=== PATIENT | female | born 1985 | race Caucasian/White ===

== ENCOUNTER → 2016-12-22 | Outpatient (CLI) | payer BC ==
[~2016-12-22] MED LIST: MTR600X PO; OXYC-57 PO; PRENTAB26 PO
[2016-12-22 12:36] LABS: URINE APPEARANCE CLEAR (CLEAR); URINE BILIRUBIN NEG (NEG); URINE COLOR YELLOW; URINE EPITHELIAL CELL AUTO >30 /lpf (0-5); URINE NITRITE NEG (NEG); URINE PH 7.5 (4.5-7.5); URINE SPECIFIC GRAVITY 1.013 (1.000-1.030); UROBILINOGEN NEG (NEG)
[2016-12-22 12:38] LABS: GTGD 50 Grams
[2016-12-22 12:42] LABS: MANUAL MICROSCOPIC REQUIRED? NO; REVIEW REQ? YES
== END | disposition home or self-care (01) ==
LOC: C.LAB1850 09:55
PROVIDERS: ATTEND Obstetrics & Gynecology
DX: Z34.03 Encounter for supervision of normal first pregnancy, third trimester (principal)

== ENCOUNTER → 2017-02-17 | Outpatient (CLI) | payer BC ==
[2017-02-17 12:12] LABS: BASO % 0.1 %; BASO ABS # 0.02 K/uL (0-0.2); COMPLETE YES; EOS % 0.8 %; IG% 0.9 %; LYMPH % 13.1 %; LYMPH ABS # 2.09 K/uL (1.2-3.4); MEAN CELL VOLUME 89.3 fL (80-100); MEAN CORPUSCULAR HEMOGLOBIN 30.3 pg (25-34); MEAN CORPUSCULAR HGB CONC 33.9 g/dl (32-36); MEAN PLATELET VOLUME 10.8 fL (7.4-10.4); MONO % 6.7 %; NEUT % 78.4 %; PLATELET COUNT 262 K/uL (130-400); RED BLOOD COUNT 4.03 M/uL (4.2-5.4); WHITE BLOOD COUNT 15.98 K/uL (4.8-10.8)
[2017-02-17 12:18] LABS: ALT/SGPT 16 U/L (12-78); AST/SGOT 13 U/L (15-37); CREATININE 0.61 mg/dl (0.60-1.20); URIC ACID 3.9 mg/dl (2.6-7.2)
[2017-02-17 12:33] LABS: URINE TOTAL PROTEIN 12.6 mg/dl (0-11.9)
[2017-02-17 13:03] LABS: URINE TOTAL PROTEIN CALC 277.2 mg/24 hr (0-149.1)
== END | disposition home or self-care (01) ==
LOC: C.LAB1850 10:44
PROVIDERS: ATTEND Obstetrics & Gynecology
DX: R80.9 Proteinuria, unspecified (principal)

== ENCOUNTER → 2017-02-20 | Outpatient (CLI) | payer BC | END | disposition home or self-care (01) | LOC: C.LABSPEC 15:04 | PROVIDERS: ATTEND Obstetrics & Gynecology | DX: Z34.03 Encounter for supervision of normal first pregnancy, third trimester (principal) ==

== ENCOUNTER → 2017-02-27 | Outpatient (CLI) | payer BC ==
[2017-02-27 09:36] LABS: BASO % 0.1 %; BASO ABS # 0.02 K/uL (0-0.2); COMPLETE YES; EOS % 1.9 %; HEMATOCRIT 35.4 % (37-47); IG% 1.2 %; LYMPH % 16.7 %; LYMPH ABS # 2.58 K/uL (1.2-3.4); MEAN CELL VOLUME 89.8 fL (80-100); MEAN CORPUSCULAR HEMOGLOBIN 30.7 pg (25-34); MEAN CORPUSCULAR HGB CONC 34.2 g/dl (32-36); MEAN PLATELET VOLUME 11.2 fL (7.4-10.4); MONO % 7.2 %; NEUT % 72.9 %; PLATELET COUNT 238 K/uL (130-400); RED BLOOD COUNT 3.94 M/uL (4.2-5.4); WHITE BLOOD COUNT 15.44 K/uL (4.8-10.8)
[2017-02-27 10:17] LABS: ALT/SGPT 18 U/L (12-78); AST/SGOT 13 U/L (15-37); CREATININE 0.67 mg/dl (0.60-1.20); URIC ACID 4.2 mg/dl (2.6-7.2)
[2017-02-27 10:39] LABS: URINE TOTAL PROTEIN 17.8 mg/dl (0-11.9)
[2017-02-27 10:49] LABS: URINE TOTAL PROTEIN CALC 351.6 mg/24 hr (0-149.1)
== END | disposition home or self-care (01) ==
LOC: C.LAB1850 07:33
PROVIDERS: ATTEND Obstetrics & Gynecology
DX: R80.9 Proteinuria, unspecified (principal)

== ENCOUNTER 2017-03-09 09:15 | Inpatient (IN) | payer BC ==
[~2017-03-09] VITALS: Ht 165.1 cm; Wt 107.5 kg
[2017-03-09] MEDS ORDERED: LACTATED RINGER'S 1000ML 1,000 ML IV PRN (09:46)
[2017-03-09] MEDS ORDERED: PENICILLIN G POTASSIUM IV 6 MU in DEXTROSE 5% 250ML 250 ML IV ONE (10:00)
[2017-03-09 10:21] LABS: HEMATOCRIT 35.8 % (37-47); MEAN CELL VOLUME 89.5 fL (80-100); MEAN PLATELET VOLUME 10.9 fL (7.4-10.4); PLATELET COUNT 250 K/uL (130-400); WHITE BLOOD COUNT 19.42 K/uL (4.8-10.8)
[2017-03-09] MEDS ORDERED: BUPIVACAINE 0.25% 30 ML VIAL ONE (10:29)
[2017-03-09] MEDS ORDERED: FENTANYL CITRATE INJ 50 MCG/1 ML 2 ML VIAL ONE (10:29)
[2017-03-09] MEDS ORDERED: FENTANYL 2MCG/ML ROPIV 1.25MG/ML 100ML BAG EPI ONE (10:29)
[2017-03-09] MEDS ORDERED: EpHEDrine SULFATE INJ 50 MG/ML AMP ONE (10:29)
[2017-03-09 10:35] LABS: MEAN CORPUSCULAR HGB CONC 33.5 g/dl (32-36)
[2017-03-09] MEDS ORDERED: NALOXONE HCL INJ 1 MG in SODIUM CHLORIDE 0.9% 1000ML 1,000 ML IV PRN (10:56)
[2017-03-09] MEDS ORDERED: LACTATED RINGER'S 1000ML 500 ML IV PRN ×2 (10:56→16:24)
[2017-03-09] MEDS ORDERED: EpHEDrine SULFATE INJ 50 MG/ML AMP IV PRN (11:00)
[2017-03-09] MEDS ORDERED: ONDANSETRON INJ 2 MG/ML 2 ML VIAL IV PRN (11:00)
[2017-03-09] MEDS ORDERED: NALOXONE HCL INJ 0.4 MG/1 ML VIAL/CARP IV PRN (11:00)
[2017-03-09] MEDS ORDERED: DiphenhydrAMINE HCL 50 MG/ML VIAL IV PRN (11:00)
[2017-03-09] MEDS ORDERED: NALBUPHINE HCL INJ 10 MG/ML AMP IV PRN (11:00)
[2017-03-09] MEDS: LACTATED RINGER'S 1000ML 1,000 ML IV SCH ×2 (11:55→17:27)
[2017-03-09 11:56] VITALS: Ht 165.1 cm; Wt 107.5 kg
[2017-03-09] MEDS ORDERED: PRENTAB26 PO (12:00)
[2017-03-09] MEDS: PENICILLIN G POTASSIUM IV 3 MU in DEXTROSE 5% 100ML 100 ML IV PRN ×3 (14:02→21:56)
[2017-03-09] MEDS ORDERED: ACETAMINOPHEN 325 MG TAB PO STA ×2 (14:44→21:51)
[2017-03-09] MEDS: FENTANYL 2MCG/ML ROPIV 1.25MG/ML 100ML BAG EPI PRN ×3 (15:07→19:13)
[2017-03-09] MEDS ORDERED: NURSING VERBAL MED ORDER ONE ×2 (15:15→17:45)
[2017-03-09] MEDS ORDERED: CALCIUM CARBONATE 500 MG CHEWABLE ONE (15:16)
[2017-03-09] MEDS ORDERED: OXYTOCIN 30 UNITS/500ML NSS IV PRN (16:30)
[2017-03-09] MEDS ORDERED: RANITIDINE HCL 150 MG TAB PO ONE (18:00)
[2017-03-09 18:49] LABS: HEMATOCRIT 34.3 % (37-47); MEAN CELL VOLUME 89.3 fL (80-100); PLATELET COUNT 205 K/uL (130-400); RED BLOOD COUNT 3.84 M/uL (4.2-5.4); WHITE BLOOD COUNT 18.81 K/uL (4.8-10.8)
[2017-03-09 19:08] LABS: MEAN CORPUSCULAR HGB CONC 34.7 g/dl (32-36)
[2017-03-09 19:12] LABS: CREATININE 0.73 mg/dl (0.60-1.20); URIC ACID 4.6 mg/dl (2.6-7.2)
[2017-03-10] VITALS (13 sets, daily range): BP systolic 114–133; BP diastolic 69–79; PULSE 89–110; TEMP 36.7–37.2; O2SAT 95–96
[2017-03-10] MEDS ORDERED: CEFAZOLIN SOD 2000 MG in DEXTROSE 5% 50ML IV STA (01:49)
[2017-03-10] MEDS ORDERED: CITRIC ACID/SODIUM CITRATE 15 ML UDC ONE (01:55)
[2017-03-10] MEDS ORDERED: BUPIVACAINE 0.5 % 5 MG/1 ML PF 10ML VIAL ONE (01:56)
[2017-03-10] MEDS ORDERED: MoRPHine SULFATE PF 1 MG/ML 10 ML AMP/VIAL ONE (01:57)
[2017-03-10] MEDS ORDERED: NURSING VERBAL MED ORDER ONE (02:00)
[2017-03-10] MEDS ORDERED: MIDAZOLAM HCL 1 MG/ML 2ML VIAL ONE (02:37)
[2017-03-10] MEDS ORDERED: METHYLERGONOVINE MALEATE 0.2 MG/ML AMP ONE (02:40)
[2017-03-10] MEDS ORDERED: LACTATED RINGER'S 1000ML 1,000 ML IV SCH (02:53)
[2017-03-10] MEDS ORDERED: DC PCA PRN (03:00)
[2017-03-10] MEDS ORDERED: DIPHTHERIA/TETANUS/PERTUSSIS 0.5 ML SYR/VIAL IM. ONE (03:00)
[2017-03-10] MEDS ORDERED: BENZOCAINE 20% AER SPR 82.5 GM CAN EXT PRN (03:00)
[2017-03-10] MEDS ORDERED: HYDROCORTISONE ACETATE 25 MG SUPP PR PRN (03:00)
[2017-03-10] MEDS ORDERED: SUPERCREAM 0.870 % 15GM JAR EXT PRN (03:00)
[2017-03-10] MEDS ORDERED: LANOLIN OINT EXT PRN ×2 (03:00)
[2017-03-10] MEDS ORDERED: FENTANYL CITRATE INJ 50 MCG/1 ML 2 ML VIAL ONE (03:05)
[2017-03-10] MEDS ORDERED: NALOXONE HCL INJ 1 MG in SODIUM CHLORIDE 0.9% 1000ML 1,000 ML IV PRN (03:18)
[2017-03-10] MEDS ORDERED: SODIUM CHLORIDE 0.9% 1000ML 1,000 ML IV PRN (03:18)
[2017-03-10] MEDS ORDERED: LACTATED RINGER'S 1000ML 500 ML IV PRN (03:18)
[2017-03-10] MEDS ORDERED: NALOXONE HCL INJ 0.08 MG in SYRINGE 1.8 ML IV PRN (03:18)
--- NOTE | 2017-03-10 03:19 | Anesthesiology Progress Note ---
Anesthesia Post Op Note Date & Time Mar 10, 2017 at 03:18 Vital Signs Pain Intensity: 4.0 Notes Mental Status: alert / awake / arousable, participated in evaluation Pt Amnestic to Procedure: Yes Nausea / Vomiting: adequately controlled Pain: adequately controlled Airway Patency, RR, SpO2: stable & adequate BP & HR: stable & adequate Hydration State: stable & adequate Anesthetic Complications: no major complications apparent
--- NOTE | 2017-03-10 03:19 | Anesthesia Procedure Note ---
Anesthesia Epidural Removal Nt Date & Time Mar 10, 2017 at 03:19 Vital Signs Pain Intensity: 4.0 Notes Mental Status: alert / awake / arousable, participated in evaluation Nausea / Vomiting: adequately controlled Pain: adequately controlled Airway Patency, RR, SpO2: stable & adequate BP & HR: stable & adequate Hydration State: stable & adequate Neuraxial Anesthesia: was administered Anesthetic Complications: no major complications apparent, pt satisfied with anesthetic care Epidural: removed without complications, with tip intact
[2017-03-10] MEDS: OXYTOCIN INJ 20 UNITS in LACTATED RINGER'S 1000ML 1,000 ML IV SCH ×2 (03:24→12:07)
[2017-03-10] MEDS ORDERED: KETOROLAC TROMETHAMINE 30 MG/ML VIAL IV. PRN ×2 (03:30→15:00)
[2017-03-10] MEDS ORDERED: MoRPHine SULFATE 2 MG/ML CARP IV PRN (03:30)
[2017-03-10] MEDS ORDERED: DC INTRASPINAL MORPHINE SCH (03:30)
[2017-03-10] MEDS ORDERED: NALOXONE HCL 0.4 MG/1 ML VIAL/CARP IV PRN (03:30)
[2017-03-10] MEDS ORDERED: ONDANSETRON INJ 2 MG/ML 2 ML VIAL IV PRN (03:30)
[2017-03-10] MEDS ORDERED: NALBUPHINE HCL INJ 10 MG/ML AMP IV PRN (03:30)
[2017-03-10] MEDS ORDERED: DiphenhydrAMINE HCL 50 MG/ML VIAL IV PRN (03:30)
[2017-03-10] MEDS ORDERED: EpHEDrine SULFATE INJ 50 MG/ML AMP IV PRN (03:30)
[2017-03-10] MEDS ORDERED: MoRPHine SULFATE PF 1 MG/ML 10 ML AMP/VIAL EPI PRN (03:30)
[2017-03-10] MEDS ORDERED: NO NARCOTICS OR SEDATIVES SCH (03:30)
--- NOTE | 2017-03-10 04:53 | OPERATIVE REPORT ---
DATE OF OPERATION: 03/10/2017 PREOPERATIVE DIAGNOSES: 1. Mims intrauterine at 39 and 1/7 weeks. 2. Gestational proteinuria. 3. Spontaneous labor and spontaneous rupture of membranes. 4. Failure to descend. 5. Maternal exhaustion. POSTOPERATIVE DIAGNOSES: Same. PROCEDURE: Primary low transverse section. SURGEON: Dr. Zamarripa. ASSURANCE SOURCING MANAGER: Dr. Verduzco. ESTIMATED BLOOD LOSS: 650 mL FINDINGS: in SANDRA position with asynclitism, normal ovaries and tubes bilaterally. COMPLICATIONS: None. DISPOSITION: Stable in labor and delivery. DESCRIPTION: Ni is a 31-year-old G1, P0, who presented at 39 weeks gestational age in labor with spontaneous rupture of membranes. She had been planned for induction on March 09 due to gestational proteinuria and severe edema; however, she had spontaneously begun the labor at approximately 4:00 a.m. that morning and came in laboring and ruptured on her own. She was provided with an epidural for pain management and antibiotics for group B Strep status. She labored spontaneously until becoming stalled at 9 cm dilation. An IUPC was placed and Pitocin was used to titrate for adequate MVUs. The patient reached complete dilation with an urge to push. The patient made excellent pushing efforts over the course of 3 hours with extensive coaching, both by nursing staff and myself at the bedside. She was able to achieve rotation of an infant that was initially in the direct OP position through the LOT position and eventually to SANDRA. However, descent never reached below +2 station. After 3 hours, the patient began complaining of exhaustion and a desire to abandon pushing efforts. She was offered a trial of operative vaginal delivery or to proceed directly to section. The patient desired a trial of operative delivery. The risks and benefits were discussed with the patient and her at the bedside. They agreed to proceed. We had discussed the use of forceps as the moulding present made me feel that vacuum would not be a successful choice. She was prepped for delivery. Her Mehta, which had been in place, was removed to get it out of the way. position and station were assessed and it was felt to be SANDRA and +2 station. A ghost application of forceps was performed at the bedside and then the patient's right followed by the patient's left forceps were placed. The forceps were unable to be easily articulated. Therefore, forceps attempt was abandoned. Again note that the forceps were never articulated and no traction was ever applied. The patient, at this time, was counseled that due to suspected asynclitism, a forceps trial was unlikely to be safe or successful and I recommended we proceed directly to delivery. The patient was in agreement. She signed a consent after it was reviewed with her and the patient's mother and also co-signed consent as witnesses. The patient's Mehta was replaced by myself under sterile conditions and the patient was then transferred to the operating room. Epidural anesthesia was increased by Dr. Tovar to achieve adequate anesthesia for surgery. After the patient was prepped, but before she was draped, I was informed that another patient in a different labor and delivery room was experiencing a severe hemorrhage with unstable vital signs. At that time, I asked that the monitor be reapplied to Ms. Nelson in the operating room while I attended to the hemorrhage. Several minutes later, after successfully managing the hemorrhage, I returned to the operating room. status had been reassuring. Dr. Verduzco arrived in the interim to assist me. She re-prepped Ms. Nelson's belly while I re-scrubbed. From that point forward, surgery began with placing her in the supine position with a leftward tilt, prepping and draping in standard sterile fashion and a hard time-out was taken prior to proceeding. She was tested for adequacy of anesthesia and a Pfannenstiel incision was then created. This was carried down sharply through the fascia, which was extended laterally using Natividad clamps and Bovie electrocautery. The fascia was grasped with Azam's and sharply and bluntly dissected off the underlying rectus muscles. The midline of the rectus was bluntly. The peritoneum was encountered and entered bluntly. A bladder blade was placed. The lower uterine segment was examined and found to be well developed with a palpable head and shoulder and the bladder flap was created and a lower transverse uterine incision was then made with a scalpel with final entry to the uterus being made in a blunt manner, using the surgeon's finger. Lightly meconium stained fluid was encountered at that time. Of note, no meconium had previously been appreciated. By introducing my hand into the uterine cavity, I was able to gently elevate the head to the hysterotomy and the infant was then delivered using mild fundal pressure. The cord was doubly clamped and a vigorous female infant was brought to the warmer for pediatric attention. The placenta was then manually extracted and sent for pathology. The uterus was gently exteriorized and cleared of all clot and debris using a dry lap sponge. The uterus was wrapped in a damp lap sponge and the hysterotomy was then closed in 2-layer fashion using 0 Vicryl suture with a running locked layer followed by an imbricating layer. At the completion of the hysterotomy repair, uterine tone was still moderately low. A dose of Methergine was given intramuscularly while fundal massage was also administered and the uterus was noted to firm up. Two small areas of bleeding near the hysterotomy were then addressed, using a 3-0 chromic suture in a [id number] manner . With hemostasis thus achieved the ovaries and tubes were examined and found to be normal. The uterus was then gently re-internalized to the maternal abdomen. The gutters were cleared of all clot and debris using a damp lap sponge. The hysterotomy was reexamined and seen to still be hemostatic and well approximated. The rectus muscles were allowed to reapproximate naturally and the fascia was then closed using 1 Vicryl in a running non-locked manner. The fascial incision was closed from each angle towards the center and each suture was knotted together in the midline. Once the fascia was closed, it was examined and found to be free of any defects. The subcutaneous tissue was then copiously irrigated and reapproximated using 3-0 chromic. The skin was then closed using 4-0 Monocryl in a running subcuticular manner and a Dermabond dressing was then applied. The Mehta was noted to be draining clear yellow urine and the patient is being transferred back to her recovery room in stable condition. I attest to the content of the Intraoperative Record and any orders documented therein. Any exceptions are noted below. MTDD
[2017-03-10] MEDS: DOCUSATE SODIUM 100 MG CAP PO SCH ×2 (08:14→20:15)
[2017-03-10] MEDS: PRENATAL VITAMIN TAB PO SCH (08:14)
[2017-03-10] MEDS: SIMETHICONE 80 MG CHEW PO SCH ×4 (08:14→20:15)
[2017-03-10] MEDS ORDERED: MEPERIDINE HCL 75 MG/ML CARP IV PRN (15:00)
[2017-03-10] MEDS ORDERED: MEPERIDINE HCL 50 MG/ML CARP IV PRN (15:00)
[2017-03-10] MEDS: IBUPROFEN 600 MG TAB PO PRN (21:07)
[2017-03-10] MEDS ORDERED: RANITIDINE HCL 150 MG TAB PO STA (21:17)
[2017-03-10] MEDS: OXYCODONE/ACETAMINOPHEN 5-325 TAB PO PRN (21:53)
[2017-03-11 01:40] VITALS: BP 109/72; PULSE 86; TEMP 36.8; O2SAT 96
[2017-03-11] MEDS: IBUPROFEN 600 MG TAB PO PRN ×5 (01:55→21:23)
[2017-03-11 06:57] LABS: BASO % 0.1 %; BASO ABS # 0.03 K/uL (0-0.2); COMPLETE YES; HEMATOCRIT 27.5 % (37-47); IG% 0.8 %; LYMPH % 13.5 %; LYMPH ABS # 2.82 K/uL (1.2-3.4); MEAN CELL VOLUME 90.8 fL (80-100); MEAN CORPUSCULAR HEMOGLOBIN 30.4 pg (25-34); MEAN CORPUSCULAR HGB CONC 33.5 g/dl (32-36); MEAN PLATELET VOLUME 10.7 fL (7.4-10.4); MONO % 7.7 %; NEUT % 76.9 %; PLATELET COUNT 209 K/uL (130-400); RED BLOOD COUNT 3.03 M/uL (4.2-5.4); WHITE BLOOD COUNT 20.86 K/uL (4.8-10.8)
[2017-03-11] MEDS: PRENATAL VITAMIN TAB PO SCH (08:28)
[2017-03-11] MEDS: RANITIDINE HCL 150 MG TAB PO SCH ×2 (08:29→19:49)
[2017-03-11] MEDS: DOCUSATE SODIUM 100 MG CAP PO SCH ×2 (08:29→19:49)
[2017-03-11] MEDS: SIMETHICONE 80 MG CHEW PO SCH ×4 (08:29→19:49)
[2017-03-11 08:30] VITALS: BP 105/71; PULSE 90; TEMP 36.6; O2SAT 95; O2SAT 96
--- NOTE | 2017-03-11 08:33 | Progress Note ---
Subjective Mar 11, 2017. Subjective conversation w/ patient, physical exam Ambulation: limited ambulation (need assistance) Voiding: no voiding problems Passing Gas: Yes Diet Tolerance: Regular Diet Lochia: Small Feeding Type: Bottle Feeding Pain: 4/10 improves with medication Comment: Patient was seen at the bedside. No acute event overnight. Review of Systems Constitutional: No fever Respiratory: No cough, No shortness of breath Cardiac: No chest pain Breast: No breast lump Abdomen: No nausea, No pain, No vomiting Female : No dysuria Denies headache Objective Vital Signs Date Time Temp Pulse Resp B/P Pulse Ox O2 Delivery O2 Flow Rate FiO2 03/11/17 01:40 36.8 86 20 109/72 Room Air 03/11/17 01:40 96 Room Air 03/10/17 19:30 37.0 105 20 114/73 Room Air 03/10/17 15:15 96 Room Air 03/10/17 15:15 18 96 03/10/17 15:15 36.8 110 16 115/79 96 Room Air 03/10/17 14:30 16 95 03/10/17 13:30 18 96 03/10/17 13:30 36.9 110 16 115/79 96 Room Air 03/10/17 12:30 16 95 03/10/17 11:30 16 96 03/10/17 10:30 16 95 03/10/17 10:25 36.8 03/10/17 09:30 18 96 03/10/17 08:30 16 96 03/10/17 08:30 37.2 102 16 115/69 96 Room Air 03/10/17 08:30 96 Room Air Physical Exam General Appearance: WELL-APPEARING, WD/WN Respiratory/Chest: chest non-tender, lungs clear, normal breath sounds Cardiovascular: regular rate, rhythm Abdomen: normal bowel sounds, non tender, soft Fundus: Firm, Tender, Relation to Umbilicus (at the umbilicus) Incision Description: Clean, Dry & Intact Extremities: non-tender, no calf tenderness, + pedal edema (1+) Laboratory Results Last 24 Hours Test 03/10/17 10:25 03/11/17 06:40 Bedside Glucose 111 mg/dl White Blood Count 20.86 K/uL Red Blood Count 3.03 M/uL Hemoglobin 9.2 g/dL Hematocrit 27.5 % Mean Corpuscular Volume 90.8 fL Mean Corpuscular Hemoglobin 30.4 pg Mean Corpuscular Hemoglobin Concent 33.5 g/dl Platelet Count 209 K/uL Mean Platelet Volume 10.7 fL Neutrophils (%) (Auto) 76.9 % Lymphocytes (%) (Auto) 13.5 % Monocytes (%) (Auto) 7.7 % Eosinophils (%) (Auto) 1.0 % Basophils (%) (Auto) 0.1 % Neutrophils # (Auto) 16.04 K/uL Lymphocytes # (Auto) 2.82 K/uL Monocytes # (Auto) 1.60 K/uL Eosinophils # (Auto) 0.20 K/uL Basophils # (Auto) 0.03 K/uL RDW Standard Deviation 47.6 fL RDW Coefficient of Variation 14.4 % Immature Granulocyte % (Auto) 0.8 % Immature Granulocyte # (Auto) 0.17 K/uL Medications Current Inpatient Medications Medications (Trade) Dose Ordered Sig/Hermilo Route Start Time Stop Time Status Last Admin Dose Admin Lactated Ringer's (Lr 1000ml) 1,000 ml @ 125 mls/hr Q8H IV 03/10/17 02:53 04/09/17 02:52 Ketorolac Tromethamine (Toradol Inj) 30 mg Q6H PRN IV. 03/10/17 15:00 03/15/17 14:59 03/10/17 16:15 30 MG Meperidine HCl (Demerol Inj) 50 mg Q4H PRN IV 03/10/17 15:00 03/24/17 14:59 Meperidine HCl (Demerol Inj) 75 mg Q4H PRN IV 03/10/17 15:00 03/24/17 14:59 Oxycodone/ Acetaminophen (Percocet 5-325mg Tab) 1 tab Q4H PRN PO 03/10/17 15:00 03/24/17 14:59 03/10/17 21:53 1 TAB Ibuprofen (Motrin Tab) 600 mg Q4H PRN PO 03/10/17 03:00 04/09/17 02:59 03/11/17 06:28 600 MG Prenat Multivit/ [place]/Iron/Folic Ac ( Vitamin Tab) 1 tab DAILY PO 03/10/17 08:00 04/09/17 07:59 03/10/17 08:14 1 TAB Docusate Sodium (coLACE CAP) 100 mg BID PO 03/10/17 08:00 04/09/17 07:59 03/10/17 20:15 100 MG Cocaine HCl (Supercream 0.870% Cr) BID PRN EXT 03/10/17 03:00 03/24/17 02:59 Lanolin (Lanolin Oint) PRN PRN EXT 03/10/17 03:00 04/09/17 02:59 Hydrocortisone Acetate (Anusol Hc Supp) 25 mg BID PRN MS 03/10/17 03:00 04/09/17 02:59 Benzocaine (Dermoplast Aero Spr) 1 appln PRN PRN EXT 03/10/17 03:00 04/09/17 02:59 Simethicone (Mylicon Chew Tab) 80 mg QID PO 03/10/17 08:00 04/09/17 08:59 03/10/17 20:15 80 MG Diphenhydramine HCl (Benadryl Cap) 25 mg QID PRN PO 03/10/17 15:00 04/09/17 14:59 Morphine Sulfate (Duramorph Pf Inj) TODAY PRN EPI 03/10/17 03:30 Ranitidine HCl (zANTac TAB) 150 mg BID PO 03/11/17 08:00 04/10/17 07:59 Assessment and Plan Post-Op Day#: 1 Continue Routine Care: A/P: This is a 31 y/o female, , s/p . She is ambulating with assistance and clinically stable. Plan: - Vitals signs are reviewed and WNL (Tmax 37 ) - Last Hgb is 9.2 - Blood type A+, GBS positive, Rubella Immune - Routine care - Encourage ambulation, monitor and control pain with medication as needed , continue with regular diet as tolerated and monitor lochia - Stool softeners and sitz bath recommended Resident Physician Supervision Note: I interviewed and examined the patient. Discussed with Dr. Bauer and agree with findings and plan as documented in the note. Any exceptions or clarifications are listed here: Doing well. Routine care. Documented By: Cassidy Verduzco
[2017-03-11] MEDS: OXYCODONE/ACETAMINOPHEN 5-325 TAB PO PRN ×3 (14:35→22:20)
[2017-03-11 15:30] VITALS: BP 103/67; PULSE 94; TEMP 36.8
--- NOTE | 2017-03-11 20:11 | Discharge Instructions ---
Discharge Instructions Date of Service Mar 11, 2017. Admission Reason for Admission: Induction Discharge Discharge Diagnosis / Problem: s/p Discharge Goals Goal(s): Routine recovery after Activity Recommendations Activity Limitations: per Instructions/Follow-up section . Instructions / Follow-Up Instructions / Follow-Up ACTIVITY RECOMMENDATIONS: * Gradual return to full activity over the next 2-3 weeks. * No lifting - nothing heavier than baby over the next 2-3 weeks. * Do not engage in vigorous exercise, sexual activity or sports until cleared by your physician. * Do not drive or operate any motorized equipment until cleared by your physician. * You may shower/bathe daily. MEDICATIONS: For discomfort or pain, you may use Acetaminophen (Tylenol), Ibuprofen (Advil), or Naproxen (Aleve) following the package directions. For constipation you may use Colace following the package directions. BREAST CARE: If you are not breast feeding: * Wear a supportive bra 24 hours a day for one to two weeks. * Avoid stimulating your breasts and nipples as much as possible during the first few weeks after delivery. * When taking a shower, have the warm water hit your back, not breasts. * When your breasts feel full, apply ice packs. Usually three to four times a day helps ease the discomfort. * Take a mild pain medication (Tylenol / Motrin) when you are uncomfortable. If breast feeding: * Use breast milk to lubricate nipples. Lansinoh cream may be used for sore nipples. You do not need to remove cream prior to breast feeding. If using a different brand of cream, check the label for directions regarding removal of cream prior to nursing. * Wear a supportive bra. * If having problems with breasts or breast feeding, call a wardrobe image consultant or your health care provider. SPECIAL CARE INSTRUCTIONS: When you are discharged from the hospital, it is important for you to follow the instructions listed below: * During the first week at home, you should be able to care for yourself and your baby. In addition, the usual light household activities are encouraged. * Limit your activities to the way you feel. Do not try to clean the house or move furniture. Be sensible. * If you actively engage in sports and have done so up until the time of your delivery, you may resume these activities as soon as you feel able. This may take up to one month or even longer. Use good judgment. * Continue to take your vitamins for at least six weeks after the of your baby. * Your diet need not be limited unless you were on a special diet before your delivery. Breast-feeding mothers need around 2500 calories per day and at least 64-80 ounces of fluid per day (8 to 10 glasses). * You should eat foods from the four major food groups. Crash diets or fad diets are to be avoided. Eating lean meats, fresh fruits and vegetables, low-fat dairy products, high fiber foods and a regular exercise program, will help you get back to your pre- weight without putting your health at risk. * Constipation is sometimes a problem after delivery. Take a mild laxative as needed. If breast feeding, Milk of Magnesia is acceptable to use. You may use a suppository or Fleets enema. * A daily shower or tub bath is suggested. Wash incision daily with warm soapy water and pat dry. It doesn't need to be covered unless drainage is present. * A bloody vaginal discharge will usually continue until around four weeks . A small amount of bleeding may continue for as long as six weeks. Vaginal discharge changes from the bright red bleeding after delivery to pink then brownish and finally yellowish-pink before becoming white and disappearing. * Bleeding may increase with activity. Your first period may come in 4-8 weeks. If you are breast feeding, your period may be delayed even longer. * [place] (sex) can begin whenever both you and your partner feel comfortable and do not have any form of genital infection. It is recommended that you wait at least six weeks for internal and external healing to occur. If you have questions, please talk to your health care practitioner. A condom should be used to prevent infection and . * Foreplay, gentle intercourse and lubrication is very important the first several times to prevent pain. A water-based lubricant such as K-Y jelly or Astroglide may be used. * If you have RH negative blood and your baby is RH positive, you will receive RHOGAM by injection prior to discharge. The nurse will give you a card to keep with you that has the date and place that you received RHOGAM after delivery. * During your care, you had a Rubella screen done to check for the presence of rubella antibodies in your blood. If your test was negative, you will receive a Rubella vaccine prior to discharge. This vaccine may cause a fever, soreness at the injection site and flu-like symptoms. If these symptoms persist, notify your health care practitioner. is not advised for one month after a Rubella vaccine. * Verbalizes understanding of car seat law as reviewed with patient nursing. * Car Seat hand-out given and reviewed with patient by nursing. * Shaken baby information reviewed with patient by nursing. Call you doctor if: * Heavy bleeding (saturating several pads an hour) or passing clots the size of your fist. * A fever >101 degrees F (38.3 degrees C) on two occasions four hours apart and /or chills. * Unusual pain in the pelvic or vaginal areas. * Call the doctor for any increased redness, drainage or swelling around the incision and any pain unrelieved by prescribed pain medication. * "Baby Blues" lasting longer than two weeks. If you have any questions or concerns, call your health care practitioner at . FOLLOW UP VISIT: * Please call the office at to schedule a 6 week examination. It is important you keep this appointment. It is important for you to make arrangements for either yearly or twice yearly check-ups thereafter. Current Hospital Diet Patient's current hospital diet: Regular OB Diet Discharge Diet Recommended Diet: Regular Diet Procedures Procedures Performed: Lower Uterine Transverse Casarean Section Pending Studies Studies pending at discharge: no Medical Emergencies . Who to Call and When: Medical Emergencies: If at any time you feel your situation is an emergency, please call [phone] immediately. . Non-Emergent Contact Non-Emergency issues call your: Shoulder Pad Molder . . "Provider Documentation" section prepared by Cassidy Verduzco. . VTE Core Measure Inpt VTE Proph given/why not?: Treatment not indicated
[2017-03-12 00:15] VITALS: BP 115/78; PULSE 85; TEMP 36.5; O2SAT 96
[2017-03-12 06:24] LABS: HEMATOCRIT 23.9 % (37-47)
[2017-03-12] MEDS: IBUPROFEN 600 MG TAB PO PRN ×4 (06:33→21:33)
--- NOTE | 2017-03-12 07:59 | Progress Note ---
Subjective Mar 12, 2017. Subjective conversation w/ patient, physical exam, lab review Ambulation: ambulating normally Voiding: no voiding problems Passing Gas: Yes Diet Tolerance: Regular Diet Lochia: Small Feeding Type: Bottle Feeding Pain: a bit painful, but pain meds are helping. Objective Vital Signs Date Time Temp Pulse Resp B/P Pulse Ox O2 Delivery O2 Flow Rate FiO2 03/12/17 00:15 36.5 85 16 115/78 96 Room Air 03/12/17 00:15 Room Air 03/11/17 15:30 Room Air 03/11/17 15:30 36.8 94 20 103/67 Room Air 03/11/17 08:30 96 Room Air 03/11/17 08:30 36.6 90 18 105/71 95 Room Air Physical Exam General Appearance: WELL-APPEARING, WD/WN, NO APPARENT DISTRESS Respiratory/Chest: lungs clear, normal breath sounds Cardiovascular: regular rate, rhythm Abdomen: normal bowel sounds, non tender, soft Fundus: Firm, Tender (appropriate for post op), Relation to Umbilicus (at u) Extremities: non-tender, normal inspection, + pedal edema (+1-2) Laboratory Results Last 24 Hours Test 03/12/17 06:10 Hemoglobin 7.6 g/dL Hematocrit 23.9 % Assessment and Plan Post-, Post-Op Day#: 2 Continue Routine Care: Doing well. hgb noted . asymptomatic. Monitor today. Routine care.
[2017-03-12 09:05] VITALS: BP 114/75; PULSE 85; TEMP 37; O2SAT 97
[2017-03-12] MEDS: DOCUSATE SODIUM 100 MG CAP PO SCH ×2 (09:07→20:02)
[2017-03-12] MEDS: RANITIDINE HCL 150 MG TAB PO SCH ×2 (09:07→20:02)
[2017-03-12] MEDS: SIMETHICONE 80 MG CHEW PO SCH ×4 (09:07→20:00)
[2017-03-12] MEDS: PRENATAL VITAMIN TAB PO SCH (09:07)
[2017-03-12] MEDS: OXYCODONE/ACETAMINOPHEN 5-325 TAB PO PRN ×4 (09:08→21:33)
[2017-03-12 15:30] VITALS: BP 116/78; PULSE 80; TEMP 36.7
[2017-03-12 23:00] VITALS: BP 116/71; PULSE 79; TEMP 36.7
[2017-03-13] MEDS: IBUPROFEN 600 MG TAB PO PRN ×2 (01:20→10:27)
[2017-03-13] MEDS: OXYCODONE/ACETAMINOPHEN 5-325 TAB PO PRN ×2 (01:21→13:08)
[2017-03-13 08:00] VITALS: BP 129/84; PULSE 83; TEMP 36.7
--- NOTE | 2017-03-13 08:02 | Progress Note ---
Subjective Mar 13, 2017. Subjective conversation w/ patient, physical exam, lab review Ambulation: ambulating normally Voiding: no voiding problems Passing Gas: Yes Diet Tolerance: Regular Diet Lochia: Small Feeding Type: Bottle Feeding Pain: improves with medication Comment: Patient was seen at the bedside. No acute event overnight. Review of Systems Constitutional: No fever Respiratory: No shortness of breath Cardiac: No chest pain Breast: No breast lump Abdomen: No nausea, No pain, No vomiting Female : No dysuria Denies headache Objective Vital Signs Date Time Temp Pulse Resp B/P Pulse Ox O2 Delivery O2 Flow Rate FiO2 03/12/17 23:00 36.7 79 20 116/71 Room Air 03/12/17 23:00 Room Air 03/12/17 15:30 Room Air 03/12/17 15:30 36.7 80 20 116/78 Room Air 03/12/17 09:05 37.0 85 16 114/75 97 Room Air Physical Exam General Appearance: WELL-APPEARING, WD/WN, NO APPARENT DISTRESS Respiratory/Chest: chest non-tender, lungs clear, normal breath sounds Cardiovascular: regular rate, rhythm Abdomen: normal bowel sounds, non tender, soft Fundus: Firm, Relation to Umbilicus (at the umbilicus) Incision Description: Clean, Dry & Intact Extremities: non-tender, no calf tenderness, + pedal edema (1-2+) Medications Current Inpatient Medications Medications (Trade) Dose Ordered Sig/Hermilo Route Start Time Stop Time Status Last Admin Dose Admin Lactated Ringer's (Lr 1000ml) 1,000 ml @ 125 mls/hr Q8H IV 03/10/17 02:53 04/09/17 02:52 Ketorolac Tromethamine (Toradol Inj) 30 mg Q6H PRN IV. 03/10/17 15:00 03/15/17 14:59 03/10/17 16:15 30 MG Meperidine HCl (Demerol Inj) 50 mg Q4H PRN IV 03/10/17 15:00 03/24/17 14:59 Meperidine HCl (Demerol Inj) 75 mg Q4H PRN IV 03/10/17 15:00 03/24/17 14:59 Oxycodone/ Acetaminophen (Percocet 5-325mg Tab) 1 tab Q4H PRN PO 03/10/17 15:00 03/24/17 14:59 03/13/17 01:21 1 TAB Ibuprofen (Motrin Tab) 600 mg Q4H PRN PO 03/10/17 03:00 04/09/17 02:59 03/13/17 01:20 600 MG Prenat Multivit/ Histological Illustrator/Iron/Folic Ac ( Vitamin Tab) 1 tab DAILY PO 03/10/17 08:00 04/09/17 07:59 03/12/17 09:07 1 TAB Docusate Sodium (coLACE CAP) 100 mg BID PO 03/10/17 08:00 04/09/17 07:59 03/12/17 20:02 100 MG Cocaine HCl (Supercream 0.870% Cr) BID PRN EXT 03/10/17 03:00 03/24/17 02:59 Lanolin (Lanolin Oint) PRN PRN EXT 03/10/17 03:00 04/09/17 02:59 Hydrocortisone Acetate (Anusol Hc Supp) 25 mg BID PRN OK 03/10/17 03:00 04/09/17 02:59 Benzocaine (Dermoplast Aero Spr) 1 appln PRN PRN EXT 03/10/17 03:00 04/09/17 02:59 Simethicone (Mylicon Chew Tab) 80 mg QID PO 03/10/17 08:00 04/09/17 08:59 03/12/17 13:22 80 MG Diphenhydramine HCl (Benadryl Cap) 25 mg QID PRN PO 03/10/17 15:00 04/09/17 14:59 Morphine Sulfate (Duramorph Pf Inj) TODAY PRN EPI 03/10/17 03:30 Ranitidine HCl (zANTac TAB) 150 mg BID PO 03/11/17 08:00 04/10/17 07:59 03/12/17 20:02 150 MG Assessment and Plan Post-, Post-Op Day#: 3 Continue Routine Care: A/P: This is a 31 y/o female, , s/p /. She is ambulating and clinically stable to discharge. - Vital signs are reviewed and WNL (Tmax 36.8 ) - Last Hgb 7.6 - Blood type A+, GBS positive, Rubella Immune - No signs of depression. - Routine care - Discussed resting, feeding, pain control, mastitis, control, follow up in 6 weeks and reasons to call sooner, if necessary. - Continue with pain medication as needed, and continue vitamins. - Encourage breast feeding and educate about breast feeding - Recommended iron supplement once have bowel movement - Patient understands and keen for home. - Plan to discharge home Resident Physician Supervision Note: I was present with Dr. Bauer during the history and exam. I discussed the case with the resident and agree with the findings and plan as documented in the note. Any exceptions or clarifications are listed here: POD#3 s/p section. Feeling well. Anemia of acute loss, asymptomatic. I discussed with patient her bonding with the baby - I asked about her sending the baby to the nursery all night, and if she feels ready to take care of the baby at home. She tells me she feels ready to care for the baby, and that she felt like she was encouraged to send the baby to the nursery so she could get some rest. She tells me her and mother (who is a former L&D nurse) will be at home with her to assist in taking care of baby. She feels like she is bonding well with baby and feels capable and ready to care for the baby at home. Documented By: Soheila Ramirez
[2017-03-13] MEDS ORDERED: MTR600X PO (08:26)
[2017-03-13] MEDS ORDERED: OXYC-57 PO (08:26)
[2017-03-13] MEDS: PRENATAL VITAMIN TAB PO SCH (08:48)
[2017-03-13] MEDS: DOCUSATE SODIUM 100 MG CAP PO SCH (08:48)
[2017-03-13] MEDS: SIMETHICONE 80 MG CHEW PO SCH (08:49)
[2017-03-13] MEDS: RANITIDINE HCL 150 MG TAB PO SCH (08:49)
[2017-03-13 13:16] VITALS: BP_DIAS 84; PULSE 83; TEMP 36.7
== END 2017-03-13 13:30 | disposition home health service (06) | DRG 766 ==
LOC: C.LD 09:15 → C.OBG 03-10 05:31
PROVIDERS: ADMIT Obstetrics & Gynecology; ATTEND Obstetrics & Gynecology
PROC: 10D00Z1 Extraction of Products of Conception, Low, Open Approach (ICD-10-PCS; principal; 2017-03-10 01:49)
DX: O62.1 Secondary uterine inertia (principal); O63.1 Prolonged second stage (of labor); O66.5 Attempted application of vacuum extractor and forceps; O75.81 Maternal exhaustion complicating labor and delivery; O42.02 Full-term premature rupture of membranes, onset of labor within 24 hours of rupture; O99.824 Streptococcus B carrier state complicating childbirth; O12.14 Gestational proteinuria, complicating childbirth; Z37.0 Single live birth

== ENCOUNTER 2018-01-08 13:47 | Emergency (ER) | payer BC, OTHER ==
[~2018-01-08] VITALS: Ht 162.6 cm; Wt 97.0 kg
[2018-01-08 13:56] VITALS: TEMP 36.9; Ht 162.6 cm; Wt 97.0 kg
[2018-01-08] MEDS ORDERED: BCPILLS PO (14:39)
[2018-01-08] MEDS ORDERED: ALBUT/IPRATROP 3MG/0.5MG NEB 3 ML VIAL INH STA (14:39)
[2018-01-08 14:56] LABS: BASO % 0.5 %; BASO ABS # 0.05 K/uL (0-0.2); EOS % 2.3 %; EOS ABS # 0.24 K/uL (0-0.5); HEMATOCRIT 41.6 % (37-47); HEMOGLOBIN 14.2 g/dL (12.0-16.0); IG# 0.03 K/uL (0.00-0.02); LYMPH ABS # 3.19 K/uL (1.2-3.4); MEAN CELL VOLUME 89.1 fL (80-100); MEAN CORPUSCULAR HEMOGLOBIN 30.4 pg (25-34); MEAN CORPUSCULAR HGB CONC 34.1 g/dl (32-36); MEAN PLATELET VOLUME 10.2 fL (7.4-10.4); MONO % 8.7 %; MONO ABS # 0.92 K/uL (0.11-0.59); NEUT % 58.2 %; NEUT ABS # 6.19 K/uL (1.4-6.5); PLATELET COUNT 294 K/uL (130-400); WHITE BLOOD COUNT 10.62 K/uL (4.8-10.8)
[2018-01-08 15:12] LABS: CALCIUM 9.4 mg/dl (8.5-10.1); CREATININE 0.85 mg/dl (0.60-1.20); POTASSIUM 4.2 mmol/L (3.5-5.1)
[2018-01-08 15:25] LABS: INFLUENZA B ANTIGEN Neg for Influ B (NEG)
--- NOTE | 2018-01-08 15:33 | DIAGNOSTIC IMAGING REPORT ---
TWO VIEW CHEST CLINICAL HISTORY: Cough. FINDINGS: PA and lateral chest radiographs are obtained. No prior studies are available for comparison at the time of dictation. The cardiomediastinal silhouette is unremarkable. The lungs and pleural spaces are clear. There is no pneumothorax. The bony thorax appears intact. IMPRESSION: No active disease in the chest. Electronically signed by: Caleb Myers M.D. 01/08/2018 3:31 PM Dictated Date/Time: 01/08/2018 3:31 PM
[2018-01-08 15:49] VITALS: BP 128/86; PULSE 97; O2SAT 100
[2018-01-08] MEDS ORDERED: METH4PAK PO (16:19)
[2018-01-08] MEDS ORDERED: HYDR5SYP11 PO (16:19)
[2018-01-08] MEDS ORDERED: BENZ1CAP90 PO (16:22)
--- NOTE | 2018-01-08 16:23 | EMERGENCY ROOM VISIT NOTE ---
History First contact with patient: 14:20 Chief Complaint: COUGH Stated Complaint: COUGH Nursing Triage Summary: pt c/o cough for several weeks and coughing so hard she vomitts and has pain from coughing pt is on ABX but states it is not working History of Present Illness The patient is a 32 year old female who presents to the Emergency Room with complaints of cough 3 weeks. The patient reports that she has had a persistent cough for the past 3 weeks. She was seen at urgent care 1.5 weeks ago and started on Levaquin. She has almost completed a 10 day course of this and states that her cough has not improved. She states that at times, she is coughing so hard that she has had vomiting. She has pain throughout both of her shoulders and ribs when she coughs. There is no pain at rest. The cough has been productive of yellow phlegm. She feels she has been wheezing. She denies any nasal congestion, headache, sore throat, earaches or body aches. She denies fevers. She denies any history of asthma or breathing problems. She did not receive a flu vaccine this year. She denies shortness of breath. Review of Systems A complete 10 point review of systems was reviewed with the patient with pertinent positives and negatives as per history of present illness. All else were negative. Past Medical/Surgical History Medical Problems: (1) Normal labor and delivery Social History Smoking Status: Never Smoker Alcohol Use: none Housing Status: lives alone Current/Historical Medications Scheduled Control Pills ( Control Pills), 1 TAB PO DAILY Methylprednisolone (Medrol Dosepak), 0 PO DAILY Scheduled PRN Benzonatate (Tessalon Perles), 200 MG PO TID PRN for Cough Hydrocodone W/ Homatropine (Hycodan 5/1.5MG 5 Ml), 5-10 ML PO Q4H PRN for Cough Physical Exam Vital Signs Date Time Temp Pulse Resp B/P (MAP) Pulse Ox O2 Delivery O2 Flow Rate FiO2 01/08/18 15:49 97 128/86 100 Room Air 01/08/18 13:56 36.9 87 16 122/82 95 Physical Exam VITALS: Vitals are noted on the nurse's note and reviewed by myself. Vital signs stable. GENERAL: This is a 32-year-old female, in no acute distress, nondiaphoretic, well-developed well-nourished. SKIN: The skin was without rashes. EARS: External auditory canals clear, tympanic membranes pearly riley without erythema or effusion bilaterally. EYES: Pupils equal round and reactive to light and accommodation. NOSE: Patent, turbinates without inflammation or discharge. MOUTH: Mucous membranes moist. Tonsils are not enlarged. Pharynx without erythema or exudate. NECK: Supple without nuchal rigidity. No lymphadenopathy. HEART: Regular rate and rhythm without murmurs gallops or rubs. LUNGS: Clear to auscultation bilaterally without wheezes, rales or rhonchi. No retractions or accessory muscle use. NEURO: Patient was alert and oriented to person place and time. Medical Decision & Procedures ER Provider Diagnostic Interpretation: TWO VIEW CHEST CLINICAL HISTORY: Cough. FINDINGS: PA and lateral chest radiographs are obtained. No prior studies are available for comparison at the time of dictation. The cardiomediastinal silhouette is unremarkable. The lungs and pleural spaces are clear. There is no pneumothorax. The bony thorax appears intact. IMPRESSION: No active disease in the chest. Laboratory Results 01/08/18 14:45 Red Blood Count 4.67, Mean Corpuscular Volume 89.1, Mean Corpuscular Hemoglobin 30.4, Mean Corpuscular Hemoglobin Concent 34.1, Mean Platelet Volume 10.2, Neutrophils (%) (Auto) 58.2, Lymphocytes (%) (Auto) 30.0, Monocytes (%) (Auto) 8.7, Eosinophils (%) (Auto) 2.3, Basophils (%) (Auto) 0.5, Neutrophils # (Auto) 6.19, Lymphocytes # (Auto) 3.19, Monocytes # (Auto) 0.92, Eosinophils # (Auto) 0.24, Basophils # (Auto) 0.05 01/08/18 14:45 Test 01/08/18 14:45 01/08/18 14:55 White Blood Count 10.62 K/uL (4.8-10.8) Red Blood Count 4.67 M/uL (4.2-5.4) Hemoglobin 14.2 g/dL (12.0-16.0) Hematocrit 41.6 % (37-47) Mean Corpuscular Volume 89.1 fL (80-100) Mean Corpuscular Hemoglobin 30.4 pg (25-34) Mean Corpuscular Hemoglobin Concent 34.1 g/dl (32-36) Platelet Count 294 K/uL (130-400) Mean Platelet Volume 10.2 fL (7.4-10.4) Neutrophils (%) (Auto) 58.2 % Lymphocytes (%) (Auto) 30.0 % Monocytes (%) (Auto) 8.7 % Eosinophils (%) (Auto) 2.3 % Basophils (%) (Auto) 0.5 % Neutrophils # (Auto) 6.19 K/uL (1.4-6.5) Lymphocytes # (Auto) 3.19 K/uL (1.2-3.4) Monocytes # (Auto) 0.92 K/uL (0.11-0.59) Eosinophils # (Auto) 0.24 K/uL (0-0.5) Basophils # (Auto) 0.05 K/uL (0-0.2) RDW Standard Deviation 42.0 fL (36.4-46.3) RDW Coefficient of Variation 13.0 % (11.5-14.5) Immature Granulocyte % (Auto) 0.3 % Immature Granulocyte # (Auto) 0.03 K/uL (0.00-0.02) Anion Gap 7.0 mmol/L (3-11) Est Creatinine Clear Calc Drug Dose 106.5 ml/min Estimated GFR () 104.3 Estimated GFR (Non- 90.0 BUN/Creatinine Ratio 18.1 (10-20) Calcium Level 9.4 mg/dl (8.5-10.1) Influenza Type A Antigen Neg for Influ A (NEG) Influenza Type B Antigen Neg for Influ B (NEG) Medications Administered Medications (Trade) Dose Ordered Sig/Hermilo Route Start Time Stop Time Status Last Admin Dose Admin Albuterol/ Ipratropium (Duoneb) 3 ml NOW STAT INH 01/08/18 14:39 01/08/18 14:41 DC 01/08/18 14:48 3 ML Medical Decision Differential diagnosis includes pneumonia, influenza, viral upper respiratory infection, postnasal drip, asthma, among others. The patient is a 32-year-old female who presents today complaining of persistent cough. Labs revealed no leukocytosis, anemia or concerning electrolyte abnormalities. Influenza testing was negative. Chest x-ray was performed and read by radiology with no consolidation to suggest pneumonia. Patient did not have improvement with Levaquin and I feel this is likely because her cough is due to a viral source. She was offered Tessalon Perles and Hycodan cough syrup. She requested treatment with a steroid and I refill this is reasonable as she has had persistent cough for 3 weeks. She will be placed on a Medrol Dosepak. She was instructed to follow-up with her primary care provider for further evaluation and treatment. Based on the patient's presentation and work up, I feel the patient is stable for outpatient treatment. The patient was educated to return to the emergency department for any worsening of their current condition or new/concerning symptoms. She will follow up with her PCP. Medication Reconcilliation Current Medication List: was personally reviewed by me Blood Pressure Screening Patient's blood pressure: Normal blood pressure Impression Primary Impression: Upper respiratory infection Departure Information Dispostion Home / Self-Care Condition GOOD Prescriptions Benzonatate (Tessalon Perles) 200 Mg Cap 200 MG PO TID Y for Cough, #30 CAP Prov: Niharika Rodriguez PA-C 01/08/18 Hydrocodone W/ Homatropine (HYCODAN 5/1.5MG 5 ML) 1 Syp Syp 5-10 ML PO Q4H Y for Cough, #60 ML Prov: Niharika Rodriguez PA-C 01/08/18 Methylprednisolone (MEDROL DOSEPAK) 4 Mg Tejinder 0 PO DAILY, #1 PKT Prov: Niharika Rodriguez PA-C 01/08/18 Referrals No Doctor, Assigned (PCP) Patient Instructions [facility] Additional Instructions You have been prescribed a Medrol Dosepak. Take the medicine as prescribed. Take the ENTIRE 6 day course of the steroids. Tessalon Perles as prescribed as needed for cough. Use the Hycodan syrup as directed as needed for cough. This is a narcotic medication. You should not drive or drink alcohol while taking this medication. For pain control, you can use the following [id number] medicines (if >12 yo): - Regular strength (325mg/tab) Tylenol (acetaminophen) 2 tabs every 4-6 hours as needed. Do not exceed 12 tablets in a 24 hour period. Avoid taking more than 4 grams (4000 mg) of Tylenol per day. This includes any other sources of acetaminophen you may take on a regular basis. - Regular strength (200 mg/tab) Advil (ibuprofen) 1-2 tabs every 4-6 hours as needed. Do not exceed a dose of 3200 mg per day. Follow-up with your primary care provider for recheck. Return to the emergency department with any worsening symptoms, shortness of breath, high fever or other new/concerning symptoms. Problem Qualifiers Primary Impression: Upper respiratory infection URI type: unspecified URI Qualified Codes: J06.9 - Acute upper respiratory infection, unspecified
== END 2018-01-08 16:22 | disposition home or self-care (01) ==
LOC: C.EDB 13:48 → C.EDC 16:22
DX: J06.9 Acute upper respiratory infection, unspecified (principal)

== ENCOUNTER 2018-07-11 16:20 | Inpatient (IN) | payer OTHER ==
[~2018-07-11] VITALS: Ht 162.6 cm; Wt 89.4 kg
[~2018-07-11 16:20] MED LIST changes: +BCPILLS PO; +BENZ1CAP90 PO; -MTR600X PO; -OXYC-57 PO; -PRENTAB26 PO
[2018-07-11] MEDS ORDERED: SODIUM CHLORIDE 0.9% 1000ML 2,000 ML IV STA ×2 (17:07→17:16)
[2018-07-11] MEDS ORDERED: KETOROLAC TROMETHAMINE 30 MG/ML VIAL IV STA ×2 (17:07→17:16)
[2018-07-11] MEDS ORDERED: ONDANSETRON INJ 2 MG/ML 2 ML VIAL IV STA ×2 (17:07→17:16)
[2018-07-11 17:24] LABS: BASO % 0.1 %; BASO ABS # 0.02 K/uL (0-0.2); EOS % 0.6 %; EOS ABS # 0.12 K/uL (0-0.5); HEMATOCRIT 40.8 % (37-47); IG# 0.05 K/uL (0.00-0.02); LYMPH % 20.4 %; LYMPH ABS # 3.92 K/uL (1.2-3.4); MEAN CELL VOLUME 89.7 fL (80-100); MEAN CORPUSCULAR HEMOGLOBIN 30.8 pg (25-34); MEAN CORPUSCULAR HGB CONC 34.3 g/dl (32-36); MEAN PLATELET VOLUME 11.1 fL (7.4-10.4); MONO % 7.5 %; MONO ABS # 1.45 K/uL (0.11-0.59); NEUT % 71.1 %; NEUT ABS # 13.69 K/uL (1.4-6.5); PLATELET COUNT 281 K/uL (130-400); RED CELL DISTRIBUTION WIDTH CV 12.9 % (11.5-14.5); RED CELL DISTRIBUTION WIDTH SD 42.4 fL (36.4-46.3); WHITE BLOOD COUNT 19.25 K/uL (4.8-10.8)
[2018-07-11] MEDS ORDERED: OPTIRAY 320 IV PRN (17:30)
[2018-07-11 17:34] LABS: CALCIUM 9.2 mg/dl (8.5-10.1); CREATININE 0.82 mg/dl (0.60-1.20); POTASSIUM 3.4 mmol/L (3.5-5.1)
--- NOTE | 2018-07-11 18:27 | DIAGNOSTIC IMAGING REPORT ---
ABD/PELVIS IV CONTRAST ONLY CLINICAL HISTORY: 33 years-old Female presenting with abd pain w/ BRBPR. TECHNIQUE: Multidetector CT of the abdomen and pelvis was performed after the administration of intravenous contrast. IV contrast: 92 mL of Optiray 320. A dose lowering technique was used consistent with the principles of ALARA (as low as reasonably achievable). COMPARISON: None. CT DOSE (mGy.cm): The estimated cumulative dose is 635.91 mGy.cm. FINDINGS: Fretted String Instrument Repairer topogram: Unremarkable. Lung bases: Minimal basilar opacities, likely atelectasis. Normal heart size. No pericardial or pleural effusion. Liver: Normal morphology. No liver lesion. Patent hepatic vasculature. Biliary: No intrahepatic or extrahepatic biliary ductal dilatation. Normal gallbladder. Pancreas: Normal. Spleen: Normal. Splenule noted. Adrenal glands: Normal. Kidneys and ureters: Normal. No hydronephrosis. Bladder: Normal. Pelvic organs: Uterus and ovaries normal. Bowel: Fluid noted in the sigmoid colon. Significant wall thickening extending from the junction of the descending colon and sigmoid colon proximally to the splenic flexure. Some mucosal edema evidenced by the low density wall thickening. No pneumatosis. Mild surrounding pericolonic fat infiltration. No bowel obstruction. More proximal colon is normal appearing. The appendix is normal. Small bowel normal allowing for lack of oral contrast. Peritoneal cavity: No free fluid or intraperitoneal gas. Lymph nodes: No enlarged lymph nodes in the abdomen or pelvis. Vasculature: Aorta and IVC patent and normal in caliber. Abdominal wall: Small fat-containing umbilical hernia. Musculoskeletal: Normal. IMPRESSION: 1. Significant colonic wall thickening extending from the splenic flexure to the junction of the descending and sigmoid colon. Surrounding inflammatory change. Findings most consistent with infectious or inflammatory colitis. Electronically signed by: Tee Sadler M.D. 07/11/2018 6:26 PM Dictated Date/Time: 07/11/2018 6:19 PM
[2018-07-11 21:03] VITALS: O2SAT 99; Ht 162.6 cm; Wt 89.4 kg
[2018-07-11] MEDS ORDERED: ACETAMINOPHEN 325 MG TAB PO PRN (21:15)
--- NOTE | 2018-07-11 21:22 | History and Physical ---
History & Physical Date & Time of Service: Jul 11, 2018 at 21:22 Chief Complaint: Abd Pain, Pushing Blood Out Instead Of Poop, Nause Primary Care Physician: Joon Lo DO History of Present Illness Source: patient, hospital records The patient is a 33-year-old female presents to the emergency department with the acute onset of constant abdominal pain that began the previous evening. She has been vomiting and having bowel movements all evening. Her last normal bowel movement was at 9:00 this morning, and then her next bowel movement came out as blood instead. Since that time she has had 7-8 bloody bowel movements. She denies any abdominal or rectal pain. She denies taking aspirin or NSAIDs. She denies any intra-abdominal or pelvic surgeries. She has not had any unusual food intake, and has no sick exposures or recent travels. She has had no previous occurrence of these symptoms. Past Medical/Surgical History Medical Problems: (1) Colitis (2) No significant past medical history (3) Normal labor and delivery (4) Upper respiratory infection (5) Upper respiratory infection Surgical Problems: (1) No significant past surgical history Family History Noncontributory Social History Smoking Status: Never Smoker Smokeless Tobacco Use: No Alcohol Use: none Drug Use: none Occupational Status: employed Immunizations History of Influenza Vaccine: Unknown History of Tetanus Vaccine?: Unknown History of Pneumococcal: Unknown History of Hepatitis B Vaccine: Unknown Allergies Coded Allergies: No Known Allergies (Unverified , 07/11/18) Home Medications No Active Prescriptions or Reported Meds Review of Systems The patient denies chest pain, palpitations, shortness of breath, dyspnea on exertion, cough, lower extremity swelling, sore throat, fevers, chills, sweats, weight change, constipation, abdominal pain , pelvic pain, blood in urine, dysuria, urinary frequency or urgency, lightheadedness, dizziness, headache, memory loss, loss of consciousness, rash, abnormal bruising or bleeding, imbalance, focal or generalized weakness, numbness or tingling in arms or legs, generalized arthralgias or myalgias, back or neck pain, or night sweats. The review of systems is otherwise negative other than for that already noted above, and at least 10 systems have been reviewed. Physical Exam Vital Signs Date Time Temp Pulse Resp B/P (MAP) Pulse Ox O2 Delivery O2 Flow Rate FiO2 07/11/18 21:03 99 Room Air 07/11/18 19:46 68 18 134/72 99 Room Air 07/11/18 18:18 66 18 119/72 100 Room Air 07/11/18 16:32 37.0 72 20 124/84 99 Room Air The patient is awake, alert and oriented 3, well developed and well nourished, normocephalic and atraumatic, lying in bed and in no acute distress. HEENT--PERRL, EOMI, mucous membranes and oropharynx dry. Neck--supple. No JVD. No bruits. Thyroid normal, trachea midline, no adenopathy. Heart--normal S1 and S2. No murmurs, rubs or gallops. Lungs--clear bilaterally, no respiratory distress, no accessory muscle use. Abdomen--normal bowel sounds and soft. Nontender. Nondistended, no hernias or masses, no organomegaly. Extremities--no cyanosis or clubbing. No edema. There are good distal pulses b/ l. Dermatologic--normal skin turgor, normal color, no abnormal lymph nodes, no rash. Neurologic--cranial nerves II through XII grossly intact. Rheumatologic--normal range of motion. Psychiatric--normal affect. Diagnostics Laboratory Results Results Past 24 Hours Test 07/11/18 16:40 07/11/18 16:46 07/11/18 17:20 Range/Units Urine Color YELLOW Urine Appearance CLEAR CLEAR Urine pH 5.5 4.5-7.5 Urine Specific [place] 1.023 1.000-1.030 Urine Protein NEG NEG Urine Glucose (UA) NEG NEG Urine Ketones NEG NEG Urine Occult Blood NEG NEG Urine Nitrite NEG NEG Urine Bilirubin NEG NEG Urine Urobilinogen NEG NEG Urine Leukocyte Esterase NEG NEG Urine WBC (Auto) 5-10 0-5 /hpf Urine RBC (Auto) 0-4 0-4 /hpf Urine Hyaline Casts (Auto) 5-10 0-5 /lpf Urine Epithelial Cells (Auto) >30 0-5 /lpf Urine Bacteria (Auto) 1+ NEG Urine Test NEG NEG White Blood Count 19.25 4.8-10.8 K/uL Red Blood Count 4.55 4.2-5.4 M/uL Hemoglobin 14.0 12.0-16.0 g/dL Hematocrit 40.8 37-47 % Mean Corpuscular Volume 89.7 80-100 fL Mean Corpuscular Hemoglobin 30.8 25-34 pg Mean Corpuscular Hemoglobin Concent 34.3 32-36 g/dl Platelet Count 281 130-400 K/uL Mean Platelet Volume 11.1 7.4-10.4 fL Neutrophils (%) (Auto) 71.1 % Lymphocytes (%) (Auto) 20.4 % Monocytes (%) (Auto) 7.5 % Eosinophils (%) (Auto) 0.6 % Basophils (%) (Auto) 0.1 % Neutrophils # (Auto) 13.69 1.4-6.5 K/uL Lymphocytes # (Auto) 3.92 1.2-3.4 K/uL Monocytes # (Auto) 1.45 0.11-0.59 K/uL Eosinophils # (Auto) 0.12 0-0.5 K/uL Basophils # (Auto) 0.02 0-0.2 K/uL RDW Standard Deviation 42.4 36.4-46.3 fL RDW Coefficient of Variation 12.9 11.5-14.5 % Immature Granulocyte % (Auto) 0.3 % Immature Granulocyte # (Auto) 0.05 0.00-0.02 K/uL Sodium Level 138 136-145 mmol/L Potassium Level 3.4 3.5-5.1 mmol/L Chloride Level 103 98-107 mmol/L Carbon Dioxide Level 27 21-32 mmol/L Anion Gap 8.0 3-11 mmol/L Blood Urea Nitrogen 10 7-18 mg/dl Creatinine 0.82 0.60-1.20 mg/dl Est Creatinine Clear Calc Drug Dose 104.7 ml/min Estimated GFR () 108.2 Estimated GFR (Non- 93.4 BUN/Creatinine Ratio 11.8 10-20 Random Glucose 82 70-99 mg/dl Calcium Level 9.2 8.5-10.1 mg/dl Magnesium Level 2.2 1.8-2.4 mg/dl Total Bilirubin 0.7 0.2-1 mg/dl Direct Bilirubin 0.2 0-0.2 mg/dl Aspartate Amino Transf (AST/SGOT) 16 15-37 U/L Alanine Aminotransferase (ALT/SGPT) 23 12-78 U/L Alkaline Phosphatase 97 45-117 U/L Total Protein 8.0 6.4-8.2 gm/dl Albumin 4.0 3.4-5.0 gm/dl Lipase 64 73-393 U/L Lactic Acid Level 0.7 0.4-2.0 mmol/L Microbiology Results 07/11/18 Urine Culture, Received Pending Diagnostic Radiology Patient Name: LENA ARREDONDO Unit Number: [id number] Dictated: 07/11/181818 Transcribed: 07/11/181818 PBS Printed Date/Time: [~ rep prt dt]/[~ rep prt tm] [~ rep ct labl] - [~ rep ct ivnm] [facility] [place] [address] Dictated: 07/11/181818 Transcribed: 07/11/181818 PBS Printed Date/Time: [~ rep prt dt]/[~ rep prt tm] [~ rep ct labl] - [~ rep ct ivnm] [~ rep ct add3]] ABD/PELVIS IV CONTRAST ONLY CLINICAL HISTORY: 33 years-old Female presenting with abd pain w/ BRBPR. TECHNIQUE: Multidetector CT of the abdomen and pelvis was performed after the administration of intravenous contrast. IV contrast: 92 mL of Optiray 320. A dose lowering technique was used consistent with the principles of ALARA (as low as reasonably achievable). COMPARISON: None. CT DOSE (mGy.cm): The estimated cumulative dose is 635.91 mGy.cm. FINDINGS: Cheese Tester topogram: Unremarkable. Lung bases: Minimal basilar opacities, likely atelectasis. Normal heart size. No pericardial or pleural effusion. Liver: Normal morphology. No liver lesion. Patent hepatic vasculature. Biliary: No intrahepatic or extrahepatic biliary ductal dilatation. Normal gallbladder. Pancreas: Normal. Spleen: Normal. Splenule noted. Adrenal glands: Normal. Kidneys and ureters: Normal. No hydronephrosis. Bladder: Normal. Pelvic organs: Uterus and ovaries normal. Bowel: Fluid noted in the sigmoid colon. Significant wall thickening extending from the junction of the descending colon and sigmoid colon proximally to the splenic flexure. Some mucosal edema evidenced by the low density wall thickening. No pneumatosis. Mild surrounding pericolonic fat infiltration. No bowel obstruction. More proximal colon is normal appearing. The appendix is normal. Small bowel normal allowing for lack of oral contrast. Peritoneal cavity: No free fluid or intraperitoneal gas. Lymph nodes: No enlarged lymph nodes in the abdomen or pelvis. Vasculature: Aorta and IVC patent and normal in caliber. Abdominal wall: Small fat-containing umbilical hernia. Musculoskeletal: Normal. IMPRESSION: 1. Significant colonic wall thickening extending from the splenic flexure to the junction of the descending and sigmoid colon. Surrounding inflammatory change. Findings most consistent with infectious or inflammatory colitis. Electronically signed by: Tee Sadler M.D. 07/11/2018 6:26 PM Dictated Date/Time: 07/11/2018 6:19 PM The status of this report is Signed. Draft = Not yet reviewed or approved by Radiologist. Signed = Reviewed and approved by Radiologist. <AttendingPhy></AttendingPhy> <FamilyPhy>Joon Lo DO</FamilyPhy> < PrimaryPhy>Joon Lo DO</PrimaryPhy> <UnitNumber>[id number]</ UnitNumber> <VisitNumber>[id number]</VisitNumber> <PatientName>LENA ARREDONDO< /PatientName> <DateOfBirth>1985</DateOfBirth> <Location>[facility]</Location> < ServiceDate>07/11/18</ServiceDate> <MNE>ESINDI</MNE> <OrderingPhy>Charly Madera DO</OrderingPhy> <OrderingPhyMNE>f rep ord dr kraus</OrderingPhyMNE> < DictatingPhyMNE>f rep dict dr kraus</DictatingPhyMNE> <CCListMNE>f rep ct efra</ CCListMNE> <AdmittingPhyMNE>f pt admit dr kraus</AdmittingPhyMNE> <AttendingPhyMNE >f pt attend dr kraus</AttendingPhyMNE> <ConsultingPhyMNE>f pt consult dr kraus</ConsultingPhyMNE> <FamilyPhyMNE>f pt fam dr kraus</FamilyPhyMNE> <OtherPhyMNE>f pt other dr kraus</OtherPhyMNE> < PrimaryPhyMNE>f pt prim care dr kraus</PrimaryPhyMNE> <ReferringPhyMNE>f pt referring dr kraus</ReferringPhyMNE> EKG LENA ARREDONDO ID:[id number] 11-JUL-2018 17:22:17 [facility] Poor data quality, interpretation may be adversely affected Normal sinus rhythm Normal ECG No previous ECGs available 25mm/s 10mm/mV 150Hz 8.0 SP2 12SL 241 FATOUMATA: 15 Referred by: Referred Self Unconfirmed Vent. rate 68 BPM OK interval 170 ms QRS duration 80 ms QT/QTc 410/435 ms P-R-T axes 46 72 41 1985 (33 yr) Female Room: Loc:15 Lodging Manager:FRANKLIN WOOD Impression Assessment and Plan Bright red blood per rectum-- CT suggests infectious or inflammatory colitis extending from the splenic flexure to the junction of the descending and sigmoid colon. Admit to nonmonitored bed. NPO except ice chips. Follow stool studies. H&H every 6 hours. Pantoprazole 40 mg IV every 12 hours. Zofran 4 mg IV every 6 hours as needed. No further Toradol after what was given by the ED. NSS + KCl [address] mEq [address] Erik Davies from gastroenterology has been consulted by the ED over the phone, and will be consulted to see patient in the a.m. Advanced Directives Existing Advance Directive: No Existing Living Will: No Existing Power of Dialysis Equipment Technician: No Resuscitation Status VTE Prophylaxis Will order VTE Prophylaxis: Yes Social Service Consult None Apply
[2018-07-11] MEDS ORDERED: ACETAMINOPHEN IV 100 ML IV PRN (21:30)
[2018-07-11] MEDS ORDERED: ONDANSETRON INJ 2 MG/ML 2 ML VIAL IV PRN (21:30)
[2018-07-11] MEDS: NSS + 20MEQ KCL 1000ML 1,000 ML IV SCH (22:04)
[2018-07-11 22:09] VITALS: BP 102/66; PULSE 73; TEMP 36.5; O2SAT 97
[2018-07-11 23:02] VITALS: BP 109/67; PULSE 68; TEMP 36.5; O2SAT 96
[2018-07-11] MEDS ORDERED: SODIUM CHLORIDE 0.65% NA SOLN 45 ML (OCEAN) ONE (23:22)
--- NOTE | 2018-07-12 00:07 | EMERGENCY ROOM VISIT NOTE ---
History Report prepared by Dennis: Ly Murray Under the Supervision of: Dr. Charly Madera D.O. First contact with patient: 16:59 Chief Complaint: ABDOMINAL PAIN Stated Complaint: ABD PAIN, PUSHING BLOOD OUT INSTEAD OF POOP, NAUSE Nursing Triage Summary: Pt c/o RLQ cramping abd pain, n/v, blood in stools, weakness since last night. Pt denies any abdominal problems or surgeries other than a C section. Pt states that she tried to eat toast this around 0900 today, but vomited. Last drank a few sips of water just GRAIN THRESHER. History of Present Illness The patient is a 33 year old female who presents to the Emergency Room with complaints of constant abdominal pain that began last night. The patient states that she has been throwing up and has had bowel movements all night. The patient states that after she had a bowel movement at about 0900 this morning, about 8 hours ago, she states that she felt like she had to have another bowel movement but states that blood came out instead. The patient states that this blood is a normal blood red. The patient also states that she had blood come out instead of a normal bowel movement approximately 7 or 8 times and states that it there was a range from about a teaspoon of blood to two tablespoons of blood. She states that she has no history of hemorrhoids and has no pain when she has a bowel movement. The patient states that the frequency of the blood instead of bowel movements has slowed down and is getting better. The patient states that she took Zofran that she had leftover from when she had a baby to help with her nausea. The patient states that she is not on any medications and she denies any medical problems. She states that she has not had any recent travel. The patient also states that her last menstrual period was approximately two or three weeks ago and she states that it was normal. She states that her gallbladder and appendix are still in and she has not had them removed. Source of History: patient Onset: last night Position: abdomen Timing: constant Associated Symptoms: + nausea, + vomiting Review of Systems See HPI for pertinent positives & negatives. A total of 10 systems reviewed and were otherwise negative. Past Medical & Surgical Medical Problems: (1) Colitis (2) No significant past medical history (3) Normal labor and delivery Surgical Problems: (1) No significant past surgical history Social History Smoking Status: Never Smoker Alcohol Use: none Housing Status: lives alone Current/Historical Medications No Active Prescriptions or Reported Meds Allergies Coded Allergies: No Known Allergies (Unverified , 07/11/18) Physical Exam Vital Signs Date Time Temp Pulse Resp B/P (MAP) Pulse Ox O2 Delivery O2 Flow Rate FiO2 07/11/18 21:03 99 Room Air 07/11/18 19:46 68 18 134/72 99 Room Air 07/11/18 18:18 66 18 119/72 100 Room Air 07/11/18 16:32 37.0 72 20 124/84 99 Room Air Physical Exam GENERAL: Sitting up in bed, alert, well appearing, well nourished, no distress, non-toxic EYE EXAM: normal conjunctiva. OROPHARYNX: no exudate, no erythema, lips, buccal mucosa, and tongue normal and mucous membranes are moist NECK: supple, no nuchal rigidity, no adenopathy, non-tender LUNGS: Clear to auscultation. Normal chest wall mechanics HEART: no murmurs, S1 normal and S2 normal ABDOMEN: abdomen soft, non-tender, normo-active bowel sounds, no masses, no rebound or guarding. BACK: Back is symmetrical on inspection and there is no deformity, no midline tenderness, no CVA tenderness. SKIN: no rashes and no bruising UPPER EXTREMITIES: upper extremities are grossly normal. LOWER EXTREMITIES: No pitting edema. NEURO EXAM: Normal sensorium, cranial nerves II-XII grossly intact, normal speech, no gross weakness of arms, no gross weakness of legs. RECTAL: No stool. Heme positive. No external hemorrhoids. Medical Decision & Procedures ER Provider Diagnostic Interpretation: Radiology results as stated below per my review and the radiologist's interpretation: ABD/PELVIS IV CONTRAST ONLY CLINICAL HISTORY: 33 years-old Female presenting with abd pain w/ BRBPR. TECHNIQUE: Multidetector CT of the abdomen and pelvis was performed after the administration of intravenous contrast. IV contrast: 92 mL of Optiray 320. A dose lowering technique was used consistent with the principles of ALARA (as low as reasonably achievable). COMPARISON: None. CT DOSE (mGy.cm): The estimated cumulative dose is 635.91 mGy.cm. FINDINGS: Bench Lay Out Technician topogram: Unremarkable. Lung bases: Minimal basilar opacities, likely atelectasis. Normal heart size. No pericardial or pleural effusion. Liver: Normal morphology. No liver lesion. Patent hepatic vasculature. Biliary: No intrahepatic or extrahepatic biliary ductal dilatation. Normal gallbladder. Pancreas: Normal. Spleen: Normal. Splenule noted. Adrenal glands: Normal. Kidneys and ureters: Normal. No hydronephrosis. Bladder: Normal. Pelvic organs: Uterus and ovaries normal. Bowel: Fluid noted in the sigmoid colon. Significant wall thickening extending from the junction of the descending colon and sigmoid colon proximally to the splenic flexure. Some mucosal edema evidenced by the low density wall thickening. No pneumatosis. Mild surrounding pericolonic fat infiltration. No bowel obstruction. More proximal colon is normal appearing. The appendix is normal. Small bowel normal allowing for lack of oral contrast. Peritoneal cavity: No free fluid or intraperitoneal gas. Lymph nodes: No enlarged lymph nodes in the abdomen or pelvis. Vasculature: Aorta and IVC patent and normal in caliber. Abdominal wall: Small fat-containing umbilical hernia. Musculoskeletal: Normal. IMPRESSION: 1. Significant colonic wall thickening extending from the splenic flexure to the junction of the descending and sigmoid colon. Surrounding inflammatory change. Findings most consistent with infectious or inflammatory colitis. Electronically signed by: Tee Sadler M.D. 07/11/2018 6:26 PM Dictated Date/Time: 07/11/2018 6:19 PM Laboratory Results 07/11/18 16:46 Red Blood Count 4.55, Mean Corpuscular Volume 89.7, Mean Corpuscular Hemoglobin 30.8, Mean Corpuscular Hemoglobin Concent 34.3, Mean Platelet Volume 11.1, Neutrophils (%) (Auto) 71.1, Lymphocytes (%) (Auto) 20.4, Monocytes (%) (Auto) 7.5, Eosinophils (%) (Auto) 0.6, Basophils (%) (Auto) 0.1, Neutrophils # (Auto) 13.69, Lymphocytes # (Auto) 3.92, Monocytes # (Auto) 1.45, Eosinophils # (Auto) 0.12, Basophils # (Auto) 0.02 07/11/18 16:46 Test 07/11/18 16:40 07/11/18 16:46 07/11/18 17:20 Urine Color YELLOW Urine Appearance CLEAR (CLEAR) Urine pH 5.5 (4.5-7.5) Urine Specific [place] 1.023 (1.000-1.030) Urine Protein NEG (NEG) Urine Glucose (UA) NEG (NEG) Urine Ketones NEG (NEG) Urine Occult Blood NEG (NEG) Urine Nitrite NEG (NEG) Urine Bilirubin NEG (NEG) Urine Urobilinogen NEG (NEG) Urine Leukocyte Esterase NEG (NEG) Urine WBC (Auto) 5-10 /hpf (0-5) Urine RBC (Auto) 0-4 /hpf (0-4) Urine Hyaline Casts (Auto) 5-10 /lpf (0-5) Urine Epithelial Cells (Auto) >30 /lpf (0-5) Urine Bacteria (Auto) 1+ (NEG) Urine Test NEG (NEG) White Blood Count 19.25 K/uL (4.8-10.8) Red Blood Count 4.55 M/uL (4.2-5.4) Hemoglobin 14.0 g/dL (12.0-16.0) Hematocrit 40.8 % (37-47) Mean Corpuscular Volume 89.7 fL (80-100) Mean Corpuscular Hemoglobin 30.8 pg (25-34) Mean Corpuscular Hemoglobin Concent 34.3 g/dl (32-36) Platelet Count 281 K/uL (130-400) Mean Platelet Volume 11.1 fL (7.4-10.4) Neutrophils (%) (Auto) 71.1 % Lymphocytes (%) (Auto) 20.4 % Monocytes (%) (Auto) 7.5 % Eosinophils (%) (Auto) 0.6 % Basophils (%) (Auto) 0.1 % Neutrophils # (Auto) 13.69 K/uL (1.4-6.5) Lymphocytes # (Auto) 3.92 K/uL (1.2-3.4) Monocytes # (Auto) 1.45 K/uL (0.11-0.59) Eosinophils # (Auto) 0.12 K/uL (0-0.5) Basophils # (Auto) 0.02 K/uL (0-0.2) RDW Standard Deviation 42.4 fL (36.4-46.3) RDW Coefficient of Variation 12.9 % (11.5-14.5) Immature Granulocyte % (Auto) 0.3 % Immature Granulocyte # (Auto) 0.05 K/uL (0.00-0.02) Anion Gap 8.0 mmol/L (3-11) Est Creatinine Clear Calc Drug Dose 104.7 ml/min Estimated GFR () 108.2 Estimated GFR (Non- 93.4 BUN/Creatinine Ratio 11.8 (10-20) Calcium Level 9.2 mg/dl (8.5-10.1) Magnesium Level 2.2 mg/dl (1.8-2.4) Total Bilirubin 0.7 mg/dl (0.2-1) Direct Bilirubin 0.2 mg/dl (0-0.2) Aspartate Amino Transf (AST/SGOT) 16 U/L (15-37) Alanine Aminotransferase (ALT/SGPT) 23 U/L (12-78) Alkaline Phosphatase 97 U/L (45-117) Total Protein 8.0 gm/dl (6.4-8.2) Albumin 4.0 gm/dl (3.4-5.0) Lipase 64 U/L (73-393) Lactic Acid Level 0.7 mmol/L (0.4-2.0) Laboratory results per my review. Medications Administered Medications (Trade) Dose Ordered Sig/Hermilo Route Start Time Stop Time Status Last Admin Dose Admin Sodium Chloride 2,000 ml @ 999 mls/hr Q2H1M STAT IV 07/11/18 17:16 07/11/18 19:16 DC 07/11/18 17:20 999 MLS/HR Ondansetron HCl (Zofran Inj) 4 mg NOW STAT IV 07/11/18 17:16 07/11/18 17:18 DC 07/11/18 17:31 4 MG Ketorolac Tromethamine (Toradol Inj) 30 mg NOW STAT IV 07/11/18 17:16 07/11/18 17:18 DC 07/11/18 17:30 30 MG ECG Per My Interpretation Indication: abdominal pain Rate (beats per minute): 68 Rhythm: sinus rhythm Findings: other (normal axis, no PVCs, poor baseline) ED Course ED COURSE: Vital signs were reviewed and showed normal. The patients medical record was reviewed The above diagnostic studies were performed and reviewed. ED treatments and interventions as stated above. 1706: The patient was evaluated in room C10. A complete history and physical examination was performed. 1707: Ordered Zofran Inj 4 mg IV, Toradol Inj 30 mg IV, and Sodium Chloride 2000 ml @ 999 mls/hr IV. 1716: Ordered Toradol Inj 30 mg IV, Zofran Inj 4 mg IV, and Sodium Chloride 2000 ml @ 999 mls/hr IV. 192: Upon reevaluation, the patient is feeling better. 193: I discussed my findings with the patient and she understands and agrees with the treatment plan. 2004: Based on the patients age, coexisting illnesses, exam and lab findings the decision to treat as an inpatient was made. The patient remained stable while under my care. The patient will be evaluated for further management by Dr. [facility] Hospitalist Medical Decision Differential diagnoses includes but is not limited to gastritis, peptic ulcer disease, GERD, gallbladder disease, pancreatitis, small bowel obstruction, acute coronary syndrome, pericarditis, ischemic bowel, irritable bowel disease, irritable bowel syndrome, appendicitis, diverticulitis, malignancy, hernia, urinary tract infection, torsion, /ectopic (if female), perforation, trauma, infectious. Patient is a 33-year-old female who presents the ER for persistent diarrhea which is now turned into bright red blood. She has had multiple bowel movements just consisting of blood at this point. No recent trips or travel. No history of C. difficile. Labs are remarkable for a leukocytosis of 20,000. BMP along with LFTs, bilirubin lipase is unremarkable. Lactic acid was normal. CT abdomen pelvis shows diffuse inflammatory changes throughout the splenic flexure and down to the rectum. Discussed with GI. Concern for possible ischemic colitis although I favor this is much less likely especially with a negative lactate but cannot be 100% certain at this time. She was given fluids and pain meds. Will hold on antibiotics. I do agree that she would be best served at this time observed overnight. GI bleeding was diminishing throughout her stay in the ER. Medication Reconcilliation Current Medication List: was personally reviewed by me Blood Pressure Screening Patient's blood pressure: Normal blood pressure Impression Primary Impression: Colitis Additional Impressions: Leukocytosis GI bleed Scribe Attestation The scribe's documentation has been prepared under my direction and personally reviewed by me in its entirety. I confirm that the note above accurately reflects all work, treatment, procedures, and medical decision making performed by me. Departure Information Dispostion Being Evaluated By Hospitalist Prescriptions No Active Prescriptions or Reported Meds Referrals No Doctor, Assigned (PCP) Patient Instructions My [facility] Problem Qualifiers Additional Impressions: Leukocytosis Leukocytosis type: unspecified Qualified Codes: D72.829 - Elevated white blood cell count, unspecified GI bleed GI bleed type/associated pathology: unspecified gastrointestinal hemorrhage type Qualified Codes: K92.2 - Gastrointestinal hemorrhage, unspecified
--- NOTE | 2018-07-12 05:05 | GASTROINTESTINAL CONSULTATION ---
DATE OF CONSULTATION: 07/12/2018 REASON FOR EVALUATION: Diarrhea, vomiting, and blood in the stool. HISTORY OF PRESENT ILLNESS: The patient is a 33-year-old who was healthy until yesterday evening when she had the acute onset of multiple episodes of vomiting and diarrhea. This was associated with severe abdominal cramping, this persisted through the day and she started noticing just blood in her bowel movements. There was very little fecal material. She presented to the Emergency Room last evening where she was noted to have a white count of over 20,000 and admission was advised. Patient reports no previous episodes of similar condition and no one that she has been in contact within the last few days has had similar problem. She did eat a potluck meal at [employer] about 4 hours prior to the onset of her symptoms. Stools for C. diff and bacterial pathogens have been ordered and are pending. She has not had a bowel movement since arriving at the hospital. PAST MEDICAL HISTORY: Remarkable for a . MEDICATIONS: Vitamin D. ALLERGIES: None. FAMILY HISTORY: Noncontributory. SOCIAL HISTORY: The patient is a nonsmoker, lives alone. REVIEW OF SYSTEMS: Positive for being thirsty. The remainder is negative. PHYSICAL EXAMINATION: GENERAL: Patient appears in no acute distress. VITAL SIGNS: Blood pressure is 134/72, pulse 68. LUNGS: Clear. HEART: Showed a normal S1, S2. Regular rate and rhythm. ABDOMEN: Soft. Bowel sounds are hypoactive. There are no masses, no tenderness. LABORATORY DATA: Show white count of 19.25, hemoglobin 14, platelets 281. Chemistry showed a potassium of 3.4. Remainder is negative. Lipase is 64. Lactic acid is normal at 0.7. IMPRESSION: Patient has acute onset of vomiting and diarrhea with bleeding, most likely related to an infection, probably bacterial food and food poisoning such as Salmonella or campylobacter. Patient will undergo a sigmoid exam later today. In the meantime, when she produces a stool, will send it off for further studies. Once we have the stool collected and sent off, then we will probably begin an antibiotic. If she does not have a stool prior to her sigmoid exam, we will collect a stool at that time.
[2018-07-12 06:49] LABS: BASO % 0.2 %; BASO ABS # 0.02 K/uL (0-0.2); EOS % 1.9 %; EOS ABS # 0.21 K/uL (0-0.5); HEMATOCRIT 34.5 % (37-47); HEMOGLOBIN 11.5 g/dL (12.0-16.0); IG# 0.02 K/uL (0.00-0.02); LYMPH % 23.6 %; LYMPH ABS # 2.64 K/uL (1.2-3.4); MEAN CELL VOLUME 90.3 fL (80-100); MEAN CORPUSCULAR HEMOGLOBIN 30.1 pg (25-34); MEAN CORPUSCULAR HGB CONC 33.3 g/dl (32-36); MEAN PLATELET VOLUME 10.6 fL (7.4-10.4); MONO % 8.7 %; MONO ABS # 0.97 K/uL (0.11-0.59); NEUT % 65.4 %; NEUT ABS # 7.33 K/uL (1.4-6.5); PLATELET COUNT 227 K/uL (130-400); RED CELL DISTRIBUTION WIDTH SD 42.7 fL (36.4-46.3); WHITE BLOOD COUNT 11.19 K/uL (4.8-10.8)
[2018-07-12 07:02] VITALS: BP 110/73; PULSE 59; TEMP 36.5; O2SAT 97
[2018-07-12 07:28] LABS: CALCIUM 8.1 mg/dl (8.5-10.1); CREATININE 0.68 mg/dl (0.60-1.20); POTASSIUM 3.7 mmol/L (3.5-5.1)
[2018-07-12] MEDS: NSS + 20MEQ KCL 1000ML 1,000 ML IV SCH (07:28)
--- NOTE | 2018-07-12 09:24 | Hospitalist Progress Note ---
Hospitalist Progress Note Date of Service Jul 12, 2018. (Yvette Regan CRNP) Subjective Pt evaluation today including: conversation w/ patient, physical exam, chart review, lab review, review of inpatient medication list Voiding: no voiding problems Ms. Romero is afebrile, no aches or chills. She continues to have rebecca bleeding when she has a bowel movement with very little actual fecal matter. Her abdomen has a cramping pain intermittently. No nausea or vomiting, she was able to tolerate her clear liquid diet. She does not know anyone else that is ill ROS Constitutional: no chills, aches, sweats or fever Respiratory: no sob,cough, sputum, or wheezing Cardiac: no chest pain, palpitations, edema, orthopnea or lightheadedness GI: see HPI : no dysuria or hesitancy Extremities: no joint pain or weakness Skin: no rash All other systems reviewed and negative (Yvette Regan CRNP) Medications Medications Administered Medications (Trade) Dose Ordered Sig/Hermilo Route Start Time Stop Time Status Last Admin Dose Admin Sodium Chloride 2,000 ml @ 999 mls/hr Q2H1M STAT IV 07/11/18 17:16 07/11/18 19:16 DC 07/11/18 17:20 999 MLS/HR Ondansetron HCl (Zofran Inj) 4 mg NOW STAT IV 07/11/18 17:16 07/11/18 17:18 DC 07/11/18 17:31 4 MG Ketorolac Tromethamine (Toradol Inj) 30 mg NOW STAT IV 07/11/18 17:16 07/11/18 17:18 DC 07/11/18 17:30 30 MG Acetaminophen 100 ml @ 400 mls/hr Q8H PRN IV 07/11/18 21:30 08/10/18 21:29 07/12/18 05:42 400 MLS/HR Potassium Chloride/Sodium Chloride 1,000 ml @ 100 mls/hr Q10H IV 07/11/18 22:15 08/10/18 21:17 07/12/18 07:28 100 MLS/HR Sodium Chloride (Forrest Nasal [place]) 225 sprays STK-MED ONCE .ROUTE 07/11/18 23:22 07/11/18 23:23 DC 07/11/18 23:26 225 SPRAYS (Yvette Regan CRNP) Objective Vital Signs Date Time Temp Pulse Resp B/P (MAP) Pulse Ox O2 Delivery O2 Flow Rate FiO2 07/12/18 07:30 Room Air 07/12/18 07:02 36.5 59 16 110/73 (85) 97 Room Air 07/11/18 23:20 Room Air 07/11/18 23:02 36.5 68 16 109/67 (81) 96 Room Air 07/11/18 22:09 36.5 73 16 102/66 (78) 97 Room Air 07/11/18 21:45 63 18 117/79 98 07/11/18 21:38 63 18 117/79 98 Room Air 07/11/18 21:03 99 Room Air 07/11/18 19:46 68 18 134/72 99 Room Air 07/11/18 18:18 66 18 119/72 100 Room Air 07/11/18 16:32 37.0 72 20 124/84 99 Room Air (Yvette Regan CRNP) Physical Exam Notes: General: no distress Eyes: normal inspection, PERLL Respiratory: chest non tender, clear to auscultation, normal breath sounds, no respiratory distress, no accessory muscle use Cardiac: regular rate and rhythm, no rub or gallop, no murmur, no edema, no jvd GI/: active bowel sounds, no abd pain or tenderness, soft, non distended Extremities: normal range of motion, normal strength, non tender Neuro/Psych: alert and oriented x 3, normal mood and affect Skin: normal color, dry (Yvette Regan CRNP) Laboratory Results Last 24 Hours Test 07/11/18 16:40 07/11/18 16:46 07/11/18 17:20 07/12/18 06:18 Urine Color YELLOW Urine Appearance CLEAR Urine pH 5.5 Urine Specific [place] 1.023 Urine Protein NEG Urine Glucose (UA) NEG Urine Ketones NEG Urine Occult Blood NEG Urine Nitrite NEG Urine Bilirubin NEG Urine Urobilinogen NEG Urine Leukocyte Esterase NEG Urine WBC (Auto) 5-10 /hpf Urine RBC (Auto) 0-4 /hpf Urine Hyaline Casts (Auto) 5-10 /lpf Urine Epithelial Cells (Auto) >30 /lpf Urine Bacteria (Auto) 1+ Urine Test NEG White Blood Count 19.25 K/uL 11.19 K/uL Red Blood Count 4.55 M/uL 3.82 M/uL Hemoglobin 14.0 g/dL 11.5 g/dL Hematocrit 40.8 % 34.5 % Mean Corpuscular Volume 89.7 fL 90.3 fL Mean Corpuscular Hemoglobin 30.8 pg 30.1 pg Mean Corpuscular Hemoglobin Concent 34.3 g/dl 33.3 g/dl Platelet Count 281 K/uL 227 K/uL Mean Platelet Volume 11.1 fL 10.6 fL Neutrophils (%) (Auto) 71.1 % 65.4 % Lymphocytes (%) (Auto) 20.4 % 23.6 % Monocytes (%) (Auto) 7.5 % 8.7 % Eosinophils (%) (Auto) 0.6 % 1.9 % Basophils (%) (Auto) 0.1 % 0.2 % Neutrophils # (Auto) 13.69 K/uL 7.33 K/uL Lymphocytes # (Auto) 3.92 K/uL 2.64 K/uL Monocytes # (Auto) 1.45 K/uL 0.97 K/uL Eosinophils # (Auto) 0.12 K/uL 0.21 K/uL Basophils # (Auto) 0.02 K/uL 0.02 K/uL RDW Standard Deviation 42.4 fL 42.7 fL RDW Coefficient of Variation 12.9 % 13.0 % Immature Granulocyte % (Auto) 0.3 % 0.2 % Immature Granulocyte # (Auto) 0.05 K/uL 0.02 K/uL Sodium Level 138 mmol/L 141 mmol/L Potassium Level 3.4 mmol/L 3.7 mmol/L Chloride Level 103 mmol/L 109 mmol/L Carbon Dioxide Level 27 mmol/L 25 mmol/L Anion Gap 8.0 mmol/L 7.0 mmol/L Blood Urea Nitrogen 10 mg/dl 8 mg/dl Creatinine 0.82 mg/dl 0.68 mg/dl Est Creatinine Clear Calc Drug Dose 104.7 ml/min 126.2 ml/min Estimated GFR () 108.2 132.3 Estimated GFR (Non- 93.4 114.1 BUN/Creatinine Ratio 11.8 11.6 Random Glucose 82 mg/dl 93 mg/dl Calcium Level 9.2 mg/dl 8.1 mg/dl Magnesium Level 2.2 mg/dl 2.0 mg/dl Total Bilirubin 0.7 mg/dl Direct Bilirubin 0.2 mg/dl Aspartate Amino Transf (AST/SGOT) 16 U/L Alanine Aminotransferase (ALT/SGPT) 23 U/L Alkaline Phosphatase 97 U/L Total Protein 8.0 gm/dl Albumin 4.0 gm/dl Lipase 64 U/L Lactic Acid Level 0.7 mmol/L (Yvette Regan CRNP) Assessment and Plan Ms. Nelson is a 33 year old woman here for bleeding per rectum Blood per rectum, acute hemorrhagic anemia - CT suggests infectious or inflammatory colitis extending from the splenic flexure to the junction of the descending and sigmoid colon. - tolerating clears - stool cultures pending - hgb q6h - baseline is 14, 11.5 today - continue Pantoprazole 40 mg IV every 12 hours. - continue Zofran 4 mg IV every 6 hours as needed. - continue NSS + KCl 20 mEq 100 mils per hour. - Consulted GI - likely sigmoidoscopy today Full code No dvt chemoprophylaxis due to bleed (Yvette Regan CRNP) BOILER REPAIRMAN Physician Supervision Note: I discussed with Yvette Regan BOILER REPAIRMAN and agree with findings and plan as documented in the note. Any exceptions or clarifications are listed here: None Concern for bacterial colitis Cipro Flagyl been started Documented By: Antwon Ramos (Antwon Ramos M.D.)
[2018-07-12] MEDS: PANTOprazole INJ 40 MG in SYRINGE 0 ML IV SCH (10:48)
[2018-07-12 10:50] LABS: HEMATOCRIT 34.2 % (37-47); HEMOGLOBIN 11.6 g/dL (12.0-16.0)
[2018-07-12] MEDS ORDERED: PROPOFOL IV EMULSION 10 MG/ML 20 ML VIAL ONE ×3 (14:41→15:53)
--- NOTE | 2018-07-12 15:32 | Endo History and Physical ---
History & Physical Date of Service: Jul 12, 2018. Chief Complaint: bloody diarrhea Referring Physician: Dr Lo History of Present Illness For Flex sig Past Surgical History Hx Cardiac Surgery: No Hx Abdominal Surgery: No Hx Post-Op Nausea and Vomiting: No Hx Cancer Surgery: No Hx Thoracic Surgery: No Hx Orthopedic: No Hx Urinary Tract Surgery: No Social History Smoking Status: Never Smoker Smokeless Tobacco Use: No Hx Substance Use: No Hx Alcohol Use: No Allergies Coded Allergies: No Known Allergies (Unverified , 07/11/18) Current Medications Reported Home Medications Medications Dose Route/Sig Max Daily Dose Days Date Category No Active Prescriptions or Reported Medications Rx Vital Signs Weight (Kilograms): 89.400 Height (Feet): 5 Height (Inches): 4.00 Date Time Temp Pulse Resp B/P (MAP) Pulse Ox O2 Delivery O2 Flow Rate FiO2 07/12/18 15:09 36.4 69 18 115/62 (79) 100 Room Air 07/12/18 07:30 Room Air 07/12/18 07:02 36.5 59 16 110/73 (85) 97 Room Air 07/11/18 23:20 Room Air 07/11/18 23:02 36.5 68 16 109/67 (81) 96 Room Air 07/11/18 22:09 36.5 73 16 102/66 (78) 97 Room Air 07/11/18 21:45 63 18 117/79 98 07/11/18 21:38 63 18 117/79 98 Room Air 07/11/18 21:03 99 Room Air 07/11/18 19:46 68 18 134/72 99 Room Air 07/11/18 18:18 66 18 119/72 100 Room Air 07/11/18 16:32 37.0 72 20 124/84 99 Room Air Physical Exam General Appearance: WD/WN Respiratory/Chest: Respiratory effort: no dyspnea Cardiovascular: Heart Auscultation: RRR Abdomen: Inspection & Palpation: soft Assessment and Plan Bloody diarrhea for Flex sig
--- NOTE | 2018-07-12 15:54 | Discharge Instructions ---
Endoscopy Patient Instructions Date / Procedure(s) Performed Jul 12, 2018. Flex Sig Allergy Information Coded Allergies: No Known Allergies (Unverified , 07/11/18) Discharge Date / Findings Jul 12, 2018. colitis Medication Instructions Restart Stopped Medication(s): resume meds Current Inpatient Medications Medications (Trade) Dose Ordered Sig/Hermilo Route Start Time Stop Time Status Last Admin Dose Admin Ioversol (Optiray 320) 111 ml UD PRN IV 07/11/18 17:30 07/15/18 17:29 Acetaminophen (Tylenol Tab) 650 mg Q4H PRN PO 07/11/18 21:15 08/10/18 21:14 Ondansetron HCl (Zofran Inj) 4 mg Q6H PRN IV 07/11/18 21:30 08/10/18 21:29 Acetaminophen 100 ml @ 400 mls/hr Q8H PRN IV 07/11/18 21:30 08/10/18 21:29 07/12/18 05:42 400 MLS/HR Potassium Chloride/Sodium Chloride 1,000 ml @ 100 mls/hr Q10H IV 07/11/18 22:15 08/10/18 21:17 07/12/18 07:28 100 MLS/HR Pantoprazole Sodium 40 mg/ Syringe 10 ml @ 5 mls/min DAILY@11 IV 07/12/18 11:00 07/15/18 11:01 07/12/18 10:48 5 MLS/MIN Provider Instructions Activity Restrictions - No exercising or heavy lifting for 24 hours. - Do not drink alcohol the day of the procedure. - Do not drive a car or operate machinery until the day after the procedure. - Do not make any important decisions or sign important papers in 24 hours after the procedure. Following Day: - Return to full activity which may include returning to work/school. Diet Start your diet with liquids and light foods (jello, soup, juice, toast). Then eat your usual diet if not nauseated. Treatment For Common After Affects For mild abdominal pain, bloating, or excessive gas: - Rest - Eat lightly - Lie on right side Follow-Up Information Follow-up with as scheduled Anesthesia Information What You Should Know You have had a procedure that required some medicine to reduce anxiety and discomfort. This treatment is called moderate sedation. After receiving the treatment, you may be sleepy, but you will be able to breathe on your own. The effects of the treatment may last for several hours. Follow these instructions along with Activity/Diet recommendations noted above: * Do NOT do anything where dizziness or clumsiness would be dangerous. * Rest quietly at home today, then you can be up and about tomorrow. * Have a responsible person stay with you the rest of today. * You may have had an I.V. today. If so, you may take the dressing off later today. Recommendations Call your doctor if: * Trouble breathing * Continuous vomiting for more than 24 hours * Temperature above 101 degrees * Severe abdominal pain or bloating * Pain not relieved by pain medicine ordered * There is increased drainage or redness from any incision * A large amount of rectal bleeding greater than 2-3 tablespoons. (If you had a polyp/s removed or have hemorrhoids, a small amount of blood - from the rectum is to be expected.) * You have any unanswered questions or concerns. IN THE EVENT OF A SERIOUS EMERGENCY, GO TO THE NEAREST EMERGENCY ROOM Your discharge instructions were prepared by provider Erik Davies. Patient Instructions Signature Page Ni Leslie Patient (or Guardian) Signature/Date: I have read and understand the instructions given to me by my caregivers. Caregiver/RN/Doctor Signature/Date: The above-named patient and/or guardian has received patient instructions on this date. + Original Patient Signature Page (only) stays with chart. Please make copy for patient.
--- NOTE | 2018-07-12 16:06 | GI REPORT ---
Patient Name: Ni Nelson Procedure Date: 07/12/2018 3:18 PM Date of : 1985 Admit Type: Inpatient Age: 33 Gender: Female Attending MD: Erik Davies MD Procedure: Flexible Sigmoidoscopy Providers: Erik Davies MD Referring MD: Tadeo Howard Indications: Hematochezia, Diarrhea of presumed infectious origin Medicines: Propofol total dose 450 mg IV Complications: No immediate complications. Estimated Blood Loss: Estimated blood loss was minimal. Procedure: Pre-Anesthesia Assessment: - Prior to the procedure, a History and Physical was performed, and patient medications, allergies and sensitivities were reviewed. The patient's tolerance of previous anesthesia was reviewed. - The risks and benefits of the procedure and the sedation options and risks were discussed with the patient. All questions were answered and informed consent was obtained. After obtaining informed consent, the endoscope was passed under direct vision. Throughout the procedure, the patient's blood pressure, pulse, and oxygen saturations were monitored continuously. The scope was introduced through the anus and advanced to the splenic flexure. The flexible sigmoidoscopy was accomplished without difficulty. The patient tolerated the procedure well. The quality of the bowel preparation was excellent. Findings: Patchy severe inflammation characterized by adherent blood, erosions, erythema, friability, granularity and loss of vascularity was found in the rectum, in the sigmoid colon, in the descending colon and at the splenic flexure. Biopsies were taken with a cold forceps for histology. Fluid aspiration was performed. Estimated blood loss was minimal. Impression: - Patchy severe inflammation was found in the rectum, in the sigmoid colon, in the descending colon and at the splenic flexure secondary to left-sided colitis. Biopsied. Fluid aspiration performed. Recommendation: - [facility] patient [facility] care. - Cipro (ciprofloxacin) 400 mg IV q 12 hr until discharge. - Flagyl (metronidazole) 500 mg IV loading dose followed by 500 mg IV q 8 hr until discharge. Erik Davies M.D. Erik Davies MD 07/12/2018 4:05:33 PM This report has been signed electronically. Note Initiated On: 07/12/2018 3:18 PM Number of Addenda: 0 I attest to the content of the Intraoperative Record and orders documented therein, exceptions below {[id number]}
--- NOTE | 2018-07-12 16:19 | PROGRESS NOTE ---
DATE: 07/12/2018 SUBJECTIVE: The patient underwent flexible sigmoidoscopy today for evaluation of her bloody diarrhea, vomiting, and abdominal pain. The patient had the exam carried up to the splenic flexure. The patient was done unprepped, but there was very little stool in her colon. There was some blood and mucus which was aspirated and sent for culture, C. diff and fecal leukocytes. The mucosa showed rather severe patchy inflammation and erosions from the rectum up to the splenic flexure. Biopsies were obtained. IMPRESSION AND PLAN: The patient has severe left-sided colitis, probably bacterial in origin. Biopsies were obtained and stool be sent for C and S, C. diff and fecal leukocytes. The patient will now start IV Cipro and Flagyl and restart her clear-liquid diet.
--- NOTE | 2018-07-12 16:26 | Anesthesiology Progress Note ---
Anesthesia Post Op Note Date & Time Jul 12, 2018 at 16:26 Vital Signs Pain Intensity: 0 Vital Signs Past 12 Hours Date Time Temp Pulse Resp B/P (MAP) Pulse Ox O2 Delivery O2 Flow Rate FiO2 07/12/18 15:55 81 16 111/65 (80) 100 Room Air 07/12/18 15:09 36.4 69 18 115/62 (79) 100 Room Air 07/12/18 07:30 Room Air 07/12/18 07:02 36.5 59 16 110/73 (85) 97 Room Air Notes Mental Status: alert / awake / arousable, participated in evaluation Pt Amnestic to Procedure: Yes Nausea / Vomiting: adequately controlled Pain: adequately controlled Airway Patency, RR, SpO2: stable & adequate BP & HR: stable & adequate Hydration State: stable & adequate Anesthetic Complications: no major complications apparent
[2018-07-12 16:50] VITALS: BP 119/80; PULSE 56; TEMP 36.6; O2SAT 100
[2018-07-12 17:00] VITALS: O2SAT 100
[2018-07-12] MEDS: METRONIDAZOLE / NSS 500 MG in PREMIXED NSS 100 ML IV SCH (17:09)
[2018-07-12 17:23] LABS: HEMATOCRIT 36.3 % (37-47)
[2018-07-12 18:56] VITALS: BP 98/64; PULSE 59; TEMP 36.9; O2SAT 99
[2018-07-12 19:54] VITALS: BP 110/72; PULSE 74; O2SAT 98
[2018-07-12] MEDS: CIPROFLOXACIN / D5W 400 MG in PREMIXED IN D5W 200 ML IV SCH (20:48)
[2018-07-12 22:36] LABS: HEMATOCRIT 33.9 % (37-47); HEMOGLOBIN 11.3 g/dL (12.0-16.0)
[2018-07-12 23:44] VITALS: BP 101/65; PULSE 66; TEMP 36.7; O2SAT 97
[2018-07-13] MEDS: NSS + 20MEQ KCL 1000ML 1,000 ML IV SCH ×2 (00:14→14:00)
[2018-07-13] MEDS: METRONIDAZOLE / NSS 500 MG in PREMIXED NSS 100 ML IV SCH ×2 (00:14→08:02)
[2018-07-13 03:22] VITALS: BP 100/66; PULSE 66; TEMP 37; O2SAT 97
[2018-07-13 07:54] LABS: BASO % 0.3 %; BASO ABS # 0.03 K/uL (0-0.2); EOS % 2.2 %; EOS ABS # 0.23 K/uL (0-0.5); HEMOGLOBIN 11.5 g/dL (12.0-16.0); IG# 0.03 K/uL (0.00-0.02); LYMPH % 20.9 %; LYMPH ABS # 2.23 K/uL (1.2-3.4); MEAN CELL VOLUME 89.7 fL (80-100); MEAN CORPUSCULAR HEMOGLOBIN 29.5 pg (25-34); MEAN CORPUSCULAR HGB CONC 32.9 g/dl (32-36); MEAN PLATELET VOLUME 10.8 fL (7.4-10.4); MONO % 8.9 %; MONO ABS # 0.95 K/uL (0.11-0.59); NEUT % 67.4 %; NEUT ABS # 7.21 K/uL (1.4-6.5); PLATELET COUNT 205 K/uL (130-400); RED CELL DISTRIBUTION WIDTH CV 12.9 % (11.5-14.5); RED CELL DISTRIBUTION WIDTH SD 41.8 fL (36.4-46.3); WHITE BLOOD COUNT 10.68 K/uL (4.8-10.8)
[2018-07-13 07:57] VITALS: BP 103/69; PULSE 63; TEMP 36.7; O2SAT 97
[2018-07-13 08:19] LABS: CREATININE 0.66 mg/dl (0.60-1.20); POTASSIUM 3.9 mmol/L (3.5-5.1)
[2018-07-13] MEDS: CIPROFLOXACIN / D5W 400 MG in PREMIXED IN D5W 200 ML IV SCH (09:32)
[2018-07-13 09:55] VITALS: O2SAT 97
[2018-07-13] MEDS: PANTOprazole INJ 40 MG in SYRINGE 0 ML IV SCH (11:06)
[2018-07-13] MEDS ORDERED: CPR500 PO (14:09)
[2018-07-13] MEDS ORDERED: METR500T PO (14:09)
--- NOTE | 2018-07-13 14:13 | Discharge Instructions ---
Discharge Instructions Date of Service Jul 13, 2018. Admission Reason for Admission: Colitis Discharge Discharge Diagnosis / Problem: Colitis Discharge Goals Goal(s): Improve disease control Activity Recommendations Activity Limitations: resume your previous activity Exercise/Sports Limitations: gradually increase as tolerated . Instructions / Follow-Up Instructions / Follow-Up You may advance your diet as tolerated. Please continue your antibiotics for a week total. Do not drink alcohol while taking metronidazole as the combination can lead to severe nausea and vomiting. Current Hospital Diet Patient's current hospital diet: Full Liquid Diet Discharge Diet Recommended Diet: Low Fiber Diet, Low Fat Diet Procedures Procedures Performed: Flexible Sigmoidoscopy with Colon Biopsy, Stool Aspirate, Dr Davies Pending Studies Studies pending at discharge: yes List of pending studies: stool cultures - I will call you with the results if anything grows out Medical Emergencies . Who to Call and When: Medical Emergencies: If at any time you feel your situation is an emergency, please call 911 immediately. . Non-Emergent Contact Non-Emergency issues call your: Primary Care Provider Call Non-Emergent contact if: you have a fever, your pain is not controlled, you have any medication questions . . "Provider Documentation" section prepared by Yvette Regan. .
[2018-07-13] MEDS ORDERED: NURSING VERBAL MED ORDER ONE (14:15)
--- NOTE | 2018-07-13 14:26 | Discharge Summary ---
Discharge Summary Date of Service Jul 13, 2018. Discharge Summary Admission Date: Jul 11, 2018 at 21:18 Discharge Date: Jul 13, 2018 Discharge Disposition: Home Principal Diagnosis: GI bleed Immunizations: Have You Had Influenza Vaccine: Unknown History of Tetanus Vaccine?: Unknown History of Pneumococcal: Unknown History of Hepatitis B Vaccine: Unknown Procedures: ABD/PELVIS IV CONTRAST ONLY IMPRESSION: 1. Significant colonic wall thickening extending from the splenic flexure to the junction of the descending and sigmoid colon. Surrounding inflammatory change. Findings most consistent with infectious or inflammatory colitis. Flexible Sigmoidoscopy Medication Reconciliation New Medications: Ciprofloxacin (Ciprofloxacin HCl) 500 Mg Tab 500 MG PO BID for 6 Days, #11 DOSE Metronidazole (Flagyl) 500 Mg Tab 500 MG PO TID for 6 Days, #17 TAB Discharge Exam ROS Constitutional: no chills, aches, sweats or fever Respiratory: no sob,cough, sputum, or wheezing Cardiac: no chest pain, palpitations, edema, orthopnea or lightheadedness GI: mild abdominal cramping, no nausea, vomiting, diarrhea or constipation : no dysuria or hesitancy Extremities: no joint pain or weakness Skin: no rash All other systems reviewed and negative PE General: no distress Eyes: normal inspection, PERLL Respiratory: chest non tender, clear to auscultation, normal breath sounds, no respiratory distress, no accessory muscle use Cardiac: regular rate and rhythm, no rub or gallop, no murmur, no edema, no jvd GI/: active bowel sounds, no abd pain or tenderness, soft, non distended Extremities: normal range of motion, normal strength, non tender Neuro/Psych: alert and oriented x 3, normal mood and affect Skin: normal color, dry Hospital Course Ms. Nelson is a 33 year old woman here for bleeding per rectum Blood per rectum, acute hemorrhagic anemia - CT suggests infectious or inflammatory colitis extending from the splenic flexure to the junction of the descending and sigmoid colon. - tolerating full liquid diet - stool cultures pending - hgb q6h - baseline is 14, stable around 11 since second blood draw - given Pantoprazole 40 mg IV every 12 hours.- discontinue - IVF provided - Consulted GI - sigmoidoscopy showing severe colitis likely due to bacterial infection - started on cipro, flagyl, biopsies pending BAKERY CLERK Physician Supervision Note: I discussed with Yvette Regan NP and agree with findings and plan as documented in the note. Any exceptions or clarifications are listed here: None Patient has had clinical improvement although final bacterial cultures are pending she will be discharged on Cipro Flagyl with attention paid to those cultures after she leaves Documented By: Antwon Ramos Total Time Spent: Greater than 30 minutes This includes examination of the patient, discharge planning, medication reconciliation, and communication with other providers. Discharge Instructions Please refer to the electronic Patient Visit Report (Discharge Instructions) for additional information. Follow-Up GI, pcp next week Additional Copies To Joon Lo,
[2018-07-13 14:51] VITALS: BP 103/69; PULSE 63; TEMP 36.7; O2SAT 97
== END 2018-07-13 16:15 | disposition home or self-care (01) | DRG 379 ==
LOC: C.EDB 16:31 → C.MSN 21:18 → ENRESERV 21:29
PROVIDERS: ADMIT Hospitalist; ATTEND Hospitalist
PROC: 0DBE8ZX Excision of Large Intestine, Via Natural or Artificial Opening Endoscopic, Diagnostic (ICD-10-PCS; principal; 2018-07-12 15:15)
DX: K92.2 Gastrointestinal hemorrhage, unspecified (principal)